=== PATIENT | female | born 1955 | race Two or more races ===

== ENCOUNTER 2021-03-17 10:57 | Outpatient (REF) | payer OTHER, SELFPAY ==
--- NOTE | ~2021-03-17 | XR_ITS ---
EXAMINATION: XR HAND, RIGHT CLINICAL INFORMATION: Pain in right hand and wrist. COMPARISON: None TECHNIQUE: The right hand is imaged in 3 views. The right wrist is imaged in 4 views. There are a total of 7 views. FINDINGS: There is subtle deformity distal radial metaphysis likely related to old healed fracture. There is no visible acute or healing fracture. The ulnar variance is neutral. The pronator quadratus fat pad appears normal. There is no carpal joint narrowing or erosive change or chondrocalcinosis. The right hand shows no acute or healing fracture, dislocation or destructive process. There is mild osteopenia right hand and wrist. There is mild joint narrowing 1st MCP. No erosive change. The PIP joints are unremarkable. There are mild osteoarthritic changes to DIP joints greatest 2nd and 3rd fingers. XR/XR hand RT min 3V IMPRESSION: 1. Suspect old healed fracture distal radius. 2. Mild joint narrowing 1st MCP. Mild osteoarthritic changes DIP joints, greatest index and 3rd finger. 3. No erosive changes.
--- NOTE | ~2021-03-17 | XR_ITS ---
EXAMINATION: XR HAND, RIGHT CLINICAL INFORMATION: Pain in right hand and wrist. COMPARISON: None TECHNIQUE: The right hand is imaged in 3 views. The right wrist is imaged in 4 views. There are a total of 7 views. FINDINGS: There is subtle deformity distal radial metaphysis likely related to old healed fracture. There is no visible acute or healing fracture. The ulnar variance is neutral. The pronator quadratus fat pad appears normal. There is no carpal joint narrowing or erosive change or chondrocalcinosis. The right hand shows no acute or healing fracture, dislocation or destructive process. There is mild osteopenia right hand and wrist. There is mild joint narrowing 1st MCP. No erosive change. The PIP joints are unremarkable. There are mild osteoarthritic changes to DIP joints greatest 2nd and 3rd fingers. XR/XR wrist RT w scaphoid IMPRESSION: 1. Suspect old healed fracture distal radius. 2. Mild joint narrowing 1st MCP. Mild osteoarthritic changes DIP joints, greatest index and 3rd finger. 3. No erosive changes.
== END 2021-03-17 10:58 | disposition home or self-care (01) ==
LOC: HO.HOSX 10:57
PROVIDERS: PCP Internal Medicine; Visit Provider Orthopaedic Surgery
DX: M25.531 Pain in right wrist (principal); M79.641 Pain in right hand; R20.0 Anesthesia of skin; R20.2 Paresthesia of skin
CPT/HCPCS: 73110; 73130; 99202

== ENCOUNTER → 2021-03-31 12:33 | Outpatient (BNVA) | payer OTHER, SELFPAY | PROVIDERS: PCP Internal Medicine; Visit Provider Orthopaedic Surgery | DX: M25.531 Pain in right wrist (principal); M79.641 Pain in right hand; G56.02 Carpal tunnel syndrome, left upper limb | CPT/HCPCS: 99212 ==

== ENCOUNTER 2021-04-07 18:49 | Outpatient (REF) | payer OTHER, SELFPAY ==
--- NOTE | ~2021-04-07 | MR_ITS ---
EXAMINATION: MR WRIST WITHOUT CONTRAST, RIGHT CLINICAL INFORMATION: Wrist pain. Hand swelling. Pain. COMPARISON: X-ray 03/17/2021 TECHNIQUE: MRI of the wrist was performed using routine sequences on a high-field scanner. FINDINGS: BONE/JOINTS: Mild heterogeneous signal in the distal radial metaphysis with a subtle linear focus in the articular surface. Findings suggest sequela of old healed fracture. Ulnar positive variance. There is fairly diffuse edema in the lunate, with subcortical cyst in the proximal ulnar aspect. Cystic change and edema in the proximal pole of the triquetrum. These findings may be related to arthritis versus sequela of ulnar impaction. There is arthritic cyst in the distal pole of the triquetrum, as well. There are arthritic changes otherwise in the hand, including mild triscaphe joint, 1st CMC arthritis. Arthritic cysts/signal changes in the hamate, capitate. Cysts/edema in the proximal pole of the scaphoid, probably related to arthritis. Mild radiocarpal arthritis. No evidence of acute fracture. No significant joint effusion. MUSCLE/TENDONS: There is fluid in some of the flexor tendons on the volar/ulnar aspect at the level of the distal radius, suggesting mild tenosynovitis. The tendons otherwise appear intact. LIGAMENTS: Scapholunate degeneration with degenerative tearing. Degenerative tearing of the central/ulnar aspect of the triangular fibrocartilage, involving a segment approximately 0.9 cm transverse, with thinning, ill-definition and irregularity. There is degeneration and partial tearing of the dorsal and volar radioulnar ligaments, with abnormal signal, thinning and irregularity. There is degenerative tearing of the ulnar attachments of the TFCC. Trace fluid in the distal radioulnar joint. Degenerative fraying/tearing of the lunotriquetral ligament. MEDIAN NERVE: Within normal limits. MR/MR wrist RT wo con IMPRESSION: 1. Suspected old healed distal radial fracture. 2. Ulnar positive variance. Findings in the lunate, triquetrum, described above, may be related to ulnar-carpal arthritis versus ulnar impaction syndrome. Given the extensive signal changes in the lunate, evolving changes of avascular necrosis cannot be excluded. Consider followup imaging for reassessment. 3. Radiocarpal arthritis, with cyst/edema in the proximal scaphoid, probably related to arthritis. 4. Mild tenosynovitis of some of the tendons at the level of the distal radius. 5. Scapholunate degenerative tearing. Lunotriquetral ligament degenerative fraying/tearing. 6. Degenerative tearing of the TFCC. Degenerative tearing of the triangular fibrocartilage, the dorsal and volar radioulnar ligaments, and the ulnar attachments of the TFCC.
== END 2021-04-07 18:50 | disposition home or self-care (01) ==
LOC: HO.MRI 18:49
PROVIDERS: Visit Provider Orthopaedic Surgery
DX: M25.531 Pain in right wrist (principal)
CPT/HCPCS: 73221

== ENCOUNTER → 2021-05-05 14:46 | Outpatient (BNVA) | payer OTHER, SELFPAY | PROVIDERS: PCP Internal Medicine; Visit Provider Orthopaedic Surgery ==

== ENCOUNTER → 2021-05-26 12:08 | Outpatient (BNVA) | payer OTHER, SELFPAY | PROVIDERS: PCP Internal Medicine; Visit Provider Orthopaedic Surgery | DX: M79.641 Pain in right hand (principal); M25.531 Pain in right wrist; R20.0 Anesthesia of skin; R20.2 Paresthesia of skin; G56.02 Carpal tunnel syndrome, left upper limb | CPT/HCPCS: 99212 ==

== ENCOUNTER 2021-12-28 18:35 | Emergency (ER) | payer MEDICARE, SELFPAY ==
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
[2021-12-28 18:44] VITALS: BP 170/90; PULSE 75; O2SAT 100
[2021-12-28 19:30] VITALS: BP 164/62; PULSE 65; RESP 16; TEMP 36.9; O2SAT 98; BMI 30.9
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
== END 2021-12-28 21:04 | disposition home or self-care (01) ==
PROVIDERS: Emergency Provider Emergency Medicine Emergency Medical Services; PCP Internal Medicine
DX: M25.561 Pain in right knee (principal); Z79.899 Other long term (current) drug therapy
CPT/HCPCS: 73560; 99283

== ENCOUNTER 2022-02-23 07:24 | Outpatient (REF) | payer MEDICARE, SELFPAY | END 2022-02-23 07:25 | disposition home or self-care (01) | LOC: HO.MRI 07:24 | PROVIDERS: Visit Provider Internal Medicine | DX: Z13.89 Encounter for screening for other disorder (principal) ==

== ENCOUNTER 2022-03-07 07:15 | Outpatient (REF) | payer MEDICARE, SELFPAY ==
--- NOTE | ~2022-03-07 | MR_ITS ---
EXAMINATION: MR WRIST WITHOUT CONTRAST, RIGHT CLINICAL INFORMATION: Right wrist fracture with delayed healing. Fracture in 2016 with decreased strength. Wrist pain into fingers. Bone graft. COMPARISON: Most recent right wrist MRI dated 04/07/2021 and right wrist radiographs dated 03/17/2021. TECHNIQUE: MRI of the wrist was performed using routine sequences on a high-field scanner. FINDINGS: TRIANGULAR FIBROCARTILAGE: Redemonstration of diffuse degeneration throughout the triangular fibrocartilage complex with full-thickness tearing at the radial aspect, unchanged when compared to the prior MRI. INTRINSIC LIGAMENTS: Widening of the scapholunate interval is redemonstrated with attenuation and irregularity of the scapholunate ligament consistent with chronic degenerative tearing. Abnormal signal throughout the lunotriquetral ligament. Findings are unchanged. TENDONS/MEDIAN NERVE: Trace fluid within the extensor carpi radialis longus and extensor carpi radialis brevis tendon sheaths, consistent with minimal tenosynovitis. Remaining flexor and extensor tendons are grossly intact. Unremarkable median nerve. ARTICULAR CARTILAGE/BONE: Redemonstration of cortical irregularity throughout the distal radius without marrow edema, consistent with a remote, healed fracture. Minimal ulnar positive variance is again noted with prominent degenerative cystic change and marrow edema in the lunate, similar when compared to the prior MRI. Degenerative cystic change and marrow edema at the radial scaphoid articulation, similar when compared to the prior examination. Additional degenerative cystic change at the lunate and distal ulna appears unchanged. Mild articular cartilage loss with small marginal osteophytes at the triscaphe and 1st carpometacarpal joints, similar when compared to the prior MRI. No acute fracture or dislocation. JOINT FLUID/SOFT TISSUES: Small distal radioulnar and radiocarpal joint effusions. MR/MR wrist RT wo con IMPRESSION: 1. 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 Minimal ulnar positive variance with prominent subchondral cystic change and marrow edema again noted at the ulna, not significant changed. Small radiocarpal joint effusion. 2. Minimal ulnar positive variance is again noted with diffuse degenerative tearing throughout the triangular fibrocartilage complex, similar when compared to the prior examination. Small distal radial ulnar joint effusion, unchanged. 3. Mild extensor carpi ulnaris longus and extensor carpi radialis brevis tenosynovitis without an acute tendon tear or tendon retraction. 4. Chronic degenerative tearing of the scapholunate and lunotriquetral ligaments, similar when compared to the prior examination.
== END 2022-03-07 07:16 | disposition home or self-care (01) ==
LOC: HO.MRI 07:15
PROVIDERS: Visit Provider Internal Medicine
DX: S62.91XG Unspecified fracture of right hand, subsequent encounter for fracture with delayed healing (principal)
CPT/HCPCS: 73221

== ENCOUNTER → 2022-05-24 07:22 | Outpatient (REF) | payer MEDICARE, SELFPAY ==
--- NOTE | 2022-05-24 07:26 | CA_ITS ---
Transthoracic Echocardiogram Patient (Last, First, Middle): Joyce Mota Elba Gender: Female Date of : 1955 Age: 66 Procedure Date: 05/24/2022 Procedure Type: Transthoracic Echocardiogram Location: OP Height: 154.94 cm Weight: 70.76 kg BSA: 1.70 m2 Heart Rate: 64 bpm BP: 180 / 78 mmHg Elementary Substitute Teacher: SB Referring MD: Mercedes Goel MD Symptoms: I47.1 SUPRAVENTRICULAR TACHYCARDIA Study Quality: Adequate ECG Rhythm: Sinus Conclusions: - The left ventricular systolic function is normal. The calculated ejection fraction is 57% by biplane method. - No obvious valvular pathology seen on this study. Findings Left Ventricle Normal left ventricular cavity size. There is normal left ventricular wall thickness. The left ventricular systolic function is normal. The calculated ejection fraction is 57% by biplane method. Regional wall motion abnormalities can not be excluded due to suboptimal endocardial definition. Diastolic function is normal for age. LV peak GLS -17.4%. Right Ventricle Normal right ventricular cavity size and systolic function. Atria Both atria are normal in size. Aortic Valve There is a normal trileaflet aortic valve. There is mild calcification of the aortic valve. There is no aortic valve stenosis. There is trace (trivial) aortic valve regurgitation. Mitral Valve The mitral valve appears normal. There is no mitral valve regurgitation. There is no mitral valve stenosis. Pulmonic Valve The pulmonic valve is likely normal. Tricuspid Valve There is trace tricuspid valve regurgitation. The pulmonary artery systolic pressure is normal. Great Vessels The asc aorta is normal in size. Venous The inferior vena cava is normal in size and collapses greater than 50% with inspiration. Pericardium/Pleural There is no evidence of pericardial effusion. Prior Study Comparison No prior study available for comparison. Recommendations, Care & Conclusions No obvious valvular pathology seen on this study. Recommend contrast in the future to improve endocardial definition. Measurements 2D Linear Measurements IVSd: 0.78 0.6-0.9/0.6-1.0 cm LVIDd: 5.39 3.9-5.3/4.2-5.9 cm LVIDd Index: 3.17 2.4-3.2/2.2-3.1 cm/m2 LVIDs: 3.62 2.0-3.6 cm LVPWd: 0.53 0.7-1.1 cm LA Diam: 3.80 2.7-3.8/3.0-4.0 cm LAIDs Index: 2.24 1.5-2.3 cm/m2 LV Mass: 150.50 67-162/88-224 g LV Mass Index: 88.53 43-95/49-115 g/m2 LVOT Diam: 1.90 3.0+(-)1.3 cm 2D Systolic Function EF 4C: 52.60 >55% EF 2C: 61.60 >55% EF BiP: 57.10 >55% Mitral Valve MV Pk E: 0.69 MV PK A: 0.61 MV Decel Time: 271.00 E/A: 1.10 E'Lateral: 9.14 E'Medial: 5.77 E/E' Med: 11.90 E/E' Lat: 7.50 PHT: 79.00 MVA PHT: 2.78 Decel [place]: 2.53 Aortic Valve AoV Pk Marcos: 1.37 AoV Mn Marcos: 0.98 AoV VTI: 0.31 AoV Pk Grad: 8.00 Aov Mn Grad: 5.00 MAURA Cont.VTI: 1.91 LVOT LVOT Pk Marcos: 0.97 LVOT Mn Marcos: 0.71 LVOT VTI: 0.21 LVOT Pk Grad: 4.00 LVOT Mn Grad: 2.00 LVOT Diam: 1.90 LVOT Area: 2.84 Diastolic Function MV Pk E: 0.69 MV Pk A: 0.61 E/A: 1.10 E'Medial: 5.77 E/E' Med: 11.90 E' Laterial: 9.14 E/E' Lat: 7.50 Right Ventricle TAPSE (mm): 18.70 TVS' Marcos: 11.70 Tricuspid Valve TR Pk Marcos: 1.97 TR Pk Grad: 16.00 RA Press: 3.00 RVSP: 19.00 Great Vessels Aorta Sinus of Valsalva: 3.10 2.0-3.5 cm Ao Asc: 3.60 2.1-3.4 cm Pulmonary Veins Pulm Vein S/D 1.30 Pulmonary Valve PV Pk Marcos: 0.84 Peak PV Grad: 3.00 Updated in Other Vendor System with Status of Final Dorian Amin MD electronically signed on 05/24/2022 12:31:26 PM with status of Final
== END ==
LOC: HO.CARD 07:22
PROVIDERS: Visit Provider Internal Medicine
DX: I47.1 Supraventricular tachycardia (principal)
CPT/HCPCS: 93306; 93356

== ENCOUNTER → 2022-06-20 14:00 | Outpatient (BNVA) | payer MEDICARE, SELFPAY | PROVIDERS: PCP Internal Medicine; Referring Provider Internal Medicine; Visit Provider Internal Medicine | DX: I47.1 Supraventricular tachycardia (principal); I49.8 Other specified cardiac arrhythmias; R42 Dizziness and giddiness | CPT/HCPCS: 93005; 99202 ==

== ENCOUNTER → 2022-12-21 14:54 | Outpatient (BNVA) | payer MEDICARE, MEDICAID, SELFPAY | PROVIDERS: PCP Internal Medicine; Referring Provider Internal Medicine; Visit Provider Internal Medicine | DX: I49.8 Other specified cardiac arrhythmias (principal); I49.3 Ventricular premature depolarization | CPT/HCPCS: 99212 ==

== ENCOUNTER 2023-04-07 17:11 | Emergency (ER) | payer MEDICARE, MEDICAID, SELFPAY ==
[2023-04-07 17:51] VITALS: BP 160/90; PULSE 96; RESP 16; TEMP 36.7; O2SAT 96; BMI 30.6
[2023-04-07 19:20] VITALS: BMI 30.9
--- NOTE | 2023-04-07 19:42 | ED.ANIMALBIT ---
HPI - Animal Bite General Chief Complaint: Animal Bite Stated Complaint: Dog bite Time Seen by Provider: 04/07/23 18:46 Source: patient Mode of arrival: ambulatory Limitations: no limitations History of Present Illness HPI narrative: 67-year-old female presents to the ER with complaints of dog bite to the left thigh. Patient reports she was outside when a pit bull bit her left thigh. She does not know any information about the dog rabies status. She did file a report with police who were on scene. She is unaware of her last tetanus shot. MD complaint: animal bite Related Data Home Medications Medication Instructions Recorded Confirmed albuterol sulfate 90 mcg/actuation 2 puff PO Q4H PRN 06/20/22 12/21/22 aerosol inhaler fluticasone propionate 220 1 puff PO BID 06/20/22 12/21/22 mcg/actuation HFA aerosol inhaler (Flovent HFA) sumatriptan succinate 100 mg tablet mg PO 06/20/22 12/21/22 Previous Rx's Medication Instructions Recorded amoxicillin 875 mg-potassium 1 tab PO BID #20 tabs 04/07/23 clavulanate 125 mg tablet Allergies Allergy/AdvReac Type Severity Reaction Status Date / Time acetaminophen [From Percocet] Allergy vomitting Verified 04/07/23 17:51 Antihistamines - Alkylamine Allergy itching Verified 04/07/23 17:51 morphine Allergy bp goes up Verified 04/07/23 17:51 and feels pins and needles oxycodone [From Percocet] Allergy vomitting Verified 04/07/23 17:51 Review of Systems Review of Systems: Yes all other systems are reviewed and are negative Constitutional: Constitutional: Reports no additional constitutional complaints, Denies body ache(s), Denies chills, Denies fever(s), Denies headache(s) and Denies weakness Eyes: Eyes: Reports no additional eye complaints and Denies change in vision ENT: Reports system reviewed and no additional complaints, except as documented, Denies dizziness, Denies headache(s), Denies nasal congestion, Denies nasal discharge and Denies neck pain Cardiovascular: Cardiovascular: Reports no additional cardiovascular complaints, Denies chest pain, Denies leg edema and Denies dyspnea Respiratory: Respiratory: Reports no additional respiratory complaints, Denies cough and Denies dyspnea Gastrointestinal: Gastrointestinal: Reports no additional gastrointestinal complaints, Denies abdominal pain, Denies diarrhea, Denies nausea and Denies vomiting Genitourinary: Genitourinary: Reports no additional female genitourinary complaints and Denies urinary incontinence Musculoskeletal: Musculoskeletal: Reports no additional musculoskeletal complaints, Denies back pain, Denies arthralgias, Denies joint swelling, Denies neck pain, Denies numbness and Denies tingling Integumentary/Breasts: Skin/Breast: Reports system reviewed and no additional complaints, except as docu, Denies rash and Reports wounds Neurologic: Reports system reviewed and no additional complaints, except as documented, Denies dizziness, Denies headache(s), Denies numbness, Denies tingling and Denies weakness PMFSH Past Medical History Attestation statement: The following information was validated with the patient. Source: old records reviewed and nursing notes reviewed Surgical History No pertinent past surgical history Family History Family History Father No problems noted. Mother No problems noted. Social History Social History Alcohol intake: never Patient Tobacco Use Status: Never used Tobacco Smoked in Last 30 Days: No Use of substances other than those prescribed or required for medical reasons: No Advance Directives: No Advance Directives Information Provided: No Current occupational status: disabled Current occupation: rt hand Physical Exam ED Vital Signs: Vital Signs - 24 hr 04/07/23 17:51 Temperature 98.1 F Pulse Rate 96 Respiratory Rate 16 Blood Pressure 160/90 H Pulse Oximetry 96 Oxygen Delivery Method Room Air BMI result Body Mass Index 30.9 Const General: cooperative, healthy appearing, comfortable and no acute distress Orientation/consciousness: patient oriented x3 Limitations: no limitations HENMT Head: Yes normal to inspection Ears: hearing grossly normal bilaterally Eyes General: appearance normal, both eyes and all related structures Pupils: Equal, round and reactive pupils present Neck Neck: Yes normal visual inspection Chest Chest palpation & inspection: normal inspection of the chest Resp Effort & Inspection: normal respiratory effort Skin Other: Over the mid thigh both anteriorly and posteriorly there are several small abrasions noted with ecchymosis. Neuro General: patient oriented x3 and moves all extremities Cranial nerves: Yes Equal, round and reactive pupils present Medications Administered Discontinued Medications Generic Name Dose Route Start Last Admin Trade Name Freq PRN Reason Stop Dose Admin Diphtheria/Tetanus/Acell Pertussis 0.5 ml 04/07/23 19:07 04/07/23 20:30 Diphth,Pertus(Acell),Tet Adult 0.5 Ml Syringe IM 04/07/23 19:08 0.5 ml .ONCE ONE Administration Rabies Immune Globulin 1,469.64 unit 04/07/23 19:07 04/07/23 20:35 Rabies Immune Globulin/Pf 900 Unit/3 Ml Vial 20 unit/kg (1469.64 unit) 04/07/23 19:08 1,469.64 unit IM Administration ONCE ONE Rabies Vaccine Human Diploid Cell 1 ml 04/07/23 19:07 04/07/23 20:33 Rabies Vaccine, Human Diploid (Imovax) 1 Ml Vial IM 04/07/23 19:08 1 ml .ONCE ONE Administration Medical Decision Making Medical Decision Making MDM Narrative: 67-year-old female here with dog bite left thigh. Rabies status is unknown. Patient's own tetanus status is unknown. Very superficial abrasions noted to the left thigh. Patient to receive rabies immunoglobulin and rabies vaccine here in the ER. Tetanus will be updated. Patient be started on prophylactic antibiotics. The site was cleansed by nursing and dressings were applied. Reviewed worrisome signs and symptoms of when to return to the emergency room. Comfortable plan for discharge home. Differential Diagnosis Differential Diagnoses: The differential diagnosis associated with the presentation includes Dog bite Discharge Plan Discharge Clinical Impression: Bite by animal, Dog bite Patient Disposition: Home, Self-Care Instructions: Animal Bite (ED), Rabies (ED) Additional Instructions: Follow the rabies scheduled was provided to you Keep the wound clean covered and dry Return for increasing redness, fever, drainage Prescriptions: New amoxicillin-pot clavulanate 875-125 mg tablet 1 tab PO BID Qty: 20 0RF No Action fluticasone propionate [Flovent HFA] 220 mcg/actuation HFA aerosol inhaler 1 puff PO BID albuterol sulfate 90 mcg/actuation HFA aerosol inhaler 2 puff PO Q4H PRN sumatriptan succinate 100 mg tablet PO Referrals: Jah Oliva MD [Primary Care Provider] - 10 days (as needed)
--- NOTE | 2023-04-07 20:12 | PC.NURSE ---
Addendum entered by Bere Nunez 04/07/23 20:48: [facility] rabies injection as im not to the wound area. verbal order to this rn Bere and relayed onto [facility]. Original Note: rabies im injection no to the wound area per provider Jenna anderson
[2023-04-07] MEDS: Diphth,Pertus(ACell),Tet Adult 0.5 ML SYRINGE IM (20:30)
[2023-04-07] MEDS: Rabies Vaccine, Human Diploid (Imovax) 1 ML VIAL IM (20:33)
[2023-04-07] MEDS: Rabies Immune Globulin/PF 900 UNIT/3 ML VIAL 1469.64 UNIT IM (20:35)
--- NOTE | 2023-04-07 20:59 | PC.NURSE ---
patient medicated per orders, pharmacy and medical day faxed, [employer] [facility] [employer] faxed as well. pt understands to call [facility] for her next appointment and to bring the vaccination card wtih her. pt discharging to home.
== END 2023-04-07 21:04 | disposition home or self-care (01) ==
PROVIDERS: Emergency Provider Student in an Organized Health Care Education/Training Program; PCP Internal Medicine
DX: S71.152A Open bite, left thigh, initial encounter (principal); S70.312A Abrasion, left thigh, initial encounter; W54.0XXA Bitten by dog, initial encounter; Y93.9 Activity, unspecified; Y92.9 Unspecified place or not applicable; Y99.9 Unspecified external cause status; Z20.3 Contact with and (suspected) exposure to rabies; Z29.14 Encounter for prophylactic rabies immune globulin; Z23 Encounter for immunization
CPT/HCPCS: 90375; 90471; 90472; 90675; 90715; 96372; 99284

== ENCOUNTER 2023-04-10 10:05 | Outpatient (REF) | payer MEDICARE, MEDICAID, SELFPAY | END 2023-04-10 10:06 | disposition home or self-care (01) | LOC: HO.MDS 10:05 | PROVIDERS: PCP Internal Medicine; Visit Provider Nurse Practitioner Family | DX: S71.152A Open bite, left thigh, initial encounter (principal); W54.0XXA Bitten by dog, initial encounter; Z20.3 Contact with and (suspected) exposure to rabies | CPT/HCPCS: 90471; 90675 ==

== ENCOUNTER 2023-04-14 08:53 | Outpatient (REF) | payer MEDICARE, MEDICAID, SELFPAY | END 2023-04-14 08:54 | disposition home or self-care (01) | LOC: HO.MDS 08:53 | PROVIDERS: Visit Provider Nurse Practitioner Family | DX: S71.152A Open bite, left thigh, initial encounter (principal); W54.0XXA Bitten by dog, initial encounter; Z20.3 Contact with and (suspected) exposure to rabies | CPT/HCPCS: 90471; 90675 ==

== ENCOUNTER 2023-04-21 09:13 | Outpatient (REF) | payer MEDICARE, MEDICAID, SELFPAY | END 2023-04-21 09:14 | disposition home or self-care (01) | LOC: HO.MDS 09:13 | PROVIDERS: Visit Provider Nurse Practitioner Family | DX: S71.152A Open bite, left thigh, initial encounter (principal); W54.0XXA Bitten by dog, initial encounter; Z20.3 Contact with and (suspected) exposure to rabies | CPT/HCPCS: 90471; 90675 ==

== ENCOUNTER 2023-09-19 07:57 | Outpatient (REF) | payer MEDICARE, SELFPAY | END 2023-09-19 07:58 | disposition home or self-care (01) | LOC: HO.RESP 07:57 | PROVIDERS: PCP Internal Medicine; Visit Provider Internal Medicine | DX: R05.9 Cough, unspecified (principal) | CPT/HCPCS: 94010; 94727; 94729 ==

== ENCOUNTER 2023-09-25 13:36 | Outpatient (AMB) | payer MEDICARE, SELFPAY ==
[2023-09-25 13:41] VITALS: BP 124/68; PULSE 80; O2SAT 97; BMI 30.9
--- NOTE | 2023-09-25 13:41 | MHC.OFFVIS ---
Intake Vital Signs 09/25/23 13:41 Height 5 ft 1 in Weight 163 lb 5.8 oz BMI 30.9 BP 124/68 Blood Pressure Location Lt brachial Position Sitting Pulse 80 Pulse Source Pulse Oximeter Pulse Oximetry (%) 97 Oxygen Delivery Method Room Air Intake Visit Reasons: cough/hx of asthma Chairman President And Chief Executive Officer Required: No Allergies acetaminophen [From Percocet] Allergy (Verified 09/25/23 13:43) vomitting Antihistamines - Alkylamine Allergy (Verified 09/25/23 13:43) itching morphine Allergy (Verified 09/25/23 13:43) bp goes up and feels pins and needles oxycodone [From Percocet] Allergy (Verified 09/25/23 13:43) vomitting HPI HPI Comments History of Present Illness Details The patient is here for pulmonary evaluation. The patient is a 68 year woman with known history of using her rescue inhaler multiple times a day. The patient is stop her maintenance inhalers because they just were not working for her. The patient does not required any prednisone however. She also states she has significant allergies. She states that initially her asthma started after living in a moldy apartment in the afterwards she when she moved out she still had her symptoms. She was being evaluated previously by Pulmonary at [place]. But then her provide her left and she is been lost to follow-up. She did have her pulmonary function studies done recently at [facility] we did review them. The patient appears to have a partially reversible obstruction concerning with severe asthma uncontrolled and or asthma COPD overlap syndrome. Explained to him the importance of using respiratory therapy to try to maximize her bronchodilation effect that she has basilar PFTs. The patient also basilar significant symptoms may be a good candidate for biologic therapy. Will go ahead and we test her allergies and also blood work at this time. The patient also has significant chronic congestion. We did try to get a sputum sample we were able to do so. Therefore, we did provide her a sputum cup and she will try to provide 1 at home. Likely that the chronic bronchitis is mainly a asthmatic bronchitis picture due to her significant allergies. As far as exposures she does have a dog and also has an exotic birds in the house. She does clean the cage outside and tries to minimize exposure to the father's. Will go ahead and tested hypersensitivity panel to see if there is a component of hypersensitivity pneumonitis. at this time will go ahead and maximize her respiratory therapy by placing her on Trelegy and she can continue her rescue inhaler as needed. Will follow-up after the blood work and also have her get an x-ray and sputum culture. [facility] Medical History (Updated 09/25/23 @ 20:48 by Josh Silvestre MD) Chronic bronchitis Asthma Allergies Surgical History No pertinent past surgical history Family History Father No problems noted. Mother No problems noted. Alcohol intake: never Patient Tobacco Use Status: Never used Tobacco Current occupational status: disabled Current occupation: rt hand Review of Systems Const Denies fever(s) Eyes Denies itchy eyes ENT Reports nasal congestion and Reports nasal discharge Card Denies chest pain Resp Reports chest congestion, Reports cough and Reports wheezing GI Reports no additional complaints Musc Reports no additional complaints Skin/Breast Denies rash Vini/Lymph Denies lymphadenopathy Aller/Immun Denies itchy eyes and Reports wheezing Physical Exam Vital Signs: Last Vital Signs Pulse 80 09/25/23 13:41 BP 124/68 09/25/23 13:41 Pulse Ox 97 09/25/23 13:41 Oxygen Delivery Method Room Air 09/25/23 13:41 BMI result Body Mass Index 30.9 Const General: comfortable HEENT Head: Yes normocephalic Neck Neck: Yes supple Chest Chest palpation & inspection: normal inspection of the chest Resp Effort & Inspection: normal respiratory effort and prolonged expiratory phase Auscultation: rhonchi and wheezes Cardio Rate: regular rate Rhythm: regular rhythm Heart sounds: S1 normal heart sound present and S2 normal heart sound present GI Palpation (GI): Soft to palpation Extrem General: Yes no clubbing, cyanosis or edema Office Procedures Nebulizer Treatment Nebulizer Treatment 44950-[id number]/[id number] RX initial, or Nebulizer Subsequent Treatment Office Meds levalbuterol HCl 1.25 mg/3 mL solution for nebulization Performing Provider: Josh Silvestre MD Performing Location: [facility] Administered by: Ritika Reid LPN on 09/25/23 14:07 Dose Route Admin Location Dispensed Lot Number Expiration Date [place] Keymodule Assembly Supervisor 1.25 mg inhalation 3 mL [id number] 03/29/25 7151-9925-25 [employer] sodium chloride 3 % for nebulization Performing Provider: Josh Silvestre MD Performing Location: [facility] Administered by: Ritika Reid LPN on 09/25/23 14:07 Dose Route Admin Location Dispensed Lot Number Expiration Date ND Keymodule Assembly Supervisor 3 mL inhalation 3 mL [id number] 03/29/25 [id number] MYLAN Assessment & Plan Assessment & Plan (1) Asthma: Code(s): J45.909 - Unspecified asthma, uncomplicated Qualifiers: Asthma severity: severe Asthma persistence: persistent Asthma complication type: uncomplicated Qualified Code(s): J45.50 - Severe persistent asthma, uncomplicated (2) Allergies: Code(s): T78.40XA - Allergy, unspecified, initial encounter Qualifiers: Encounter type: initial encounter Qualified Code(s): T78.40XA - Allergy, unspecified, initial encounter (3) Chronic bronchitis: Code(s): J42 - Unspecified chronic bronchitis Qualifiers: Chronic bronchitis type: mucopurulent Qualified Code(s): J41.1 - Mucopurulent chronic bronchitis Plan Bloodwork start Trelegy 200 Will likely be a good candidate for biologics GAMAL as needed Sputum culure and cell count differential CXR F/U 6-8 weeks Orders: Orders Complete Blood Count Auto Diff Today J45.909 - Unspecified asthma, uncomplicated, T78.40XA - Allergy, unspecified, initial encounter Basic Metabolic Panel Today J45.909 - Unspecified asthma, uncomplicated, T78.40XA - Allergy, unspecified, initial encounter Hypersensitive Pneumonitis Prf Today J45.909 - Unspecified asthma, uncomplicated, R91.8 - Other nonspecific abnormal finding of lung field, T78.40XA - Allergy, unspecified, initial encounter Rast Allergen Today J45.909 - Unspecified asthma, uncomplicated, T78.40XA - Allergy, unspecified, initial encounter Sputum Cult + Gram stain Today J45.909 - Unspecified asthma, uncomplicated Cell Count w Diff Pleural Fld Today J45.909 - Unspecified asthma, uncomplicated AMB Nebulizer Treatment Today J45.909 - Unspecified asthma, uncomplicated XR chest 2V Today J41.1 - Mucopurulent chronic bronchitis Immunoglobulin E Today J45.909 - Unspecified asthma, uncomplicated, T78.40XA - Allergy, unspecified, initial encounter Coding Level of Care Code New Pt Level 4 (51083) Diagnoses Severe persistent asthma without complication J45.50 Asthma severity: severe Asthma persistence: persistent Asthma complication type: uncomplicated Allergy, initial encounter T78.40XA Encounter type: initial encounter Mucopurulent chronic bronchitis J41.1 Chronic bronchitis type: mucopurulent CPT Codes Nebulizer Treatment - Nebulizer Treatment, initial or subsequent: [id number]/MDI RX initial, or Nebulizer Subsequent Treatment ([id number]) Time Spent (min) 40
== END 2023-09-25 14:21 | disposition home or self-care (01) ==
PROVIDERS: PCP Internal Medicine; Referring Provider Internal Medicine; Visit Provider Hospitalist
DX: J45.50 Severe persistent asthma, uncomplicated (principal); T78.40XA Allergy, unspecified, initial encounter; J41.1 Mucopurulent chronic bronchitis
CPT/HCPCS: 99204

== ENCOUNTER 2023-09-25 13:36 | Outpatient (REF) | payer MEDICARE, SELFPAY ==
[2023-09-25 14:35] LABS: MANUAL DIFF FLAG NO
[2023-09-25 14:40] LABS: Basophils Absolute Auto 0.1 X10*3/uL (0.0-0.2); Basophils Percent Auto 0.8 % (0-2); Eosinophils Absolute Auto 0.3 X10*3/uL (0.0-0.4); Eosinophils Percent Auto 3.7 % (0-4); Hematocrit 45.4 % (37.0-47.0); Hemoglobin 14.4 g/dl (12.0-16.0); Imm Gran Abs Auto 0.03 X10*3/uL (0.00-0.03); Imm Gran Pct Auto 0.4 % (0.0-0.4); Lymphocytes Absolute Auto 2.7 X10*3/uL (1.2-4.9); Lymphocytes Percent Auto 34.8 % (20-40); Mean Corpuscular HGB Conc 31.7 g/dl (31.0-35.0); Mean Corpuscular Hemoglobin 29.2 pg (27.0-33.0); Mean Corpuscular Volume 92.1 fL (80.0-98.0); Mean Platelet Volume 10.3 fL (9.4-12.3); Monocytes Absolute Auto 0.4 X10*3/uL (0.1-1.2); Monocytes Percent Auto 4.7 % (2-11); Neutrophils Absolute Auto 4.4 x10*3/uL (2.0-8.3); Neutrophils Percent Auto 55.6 % (45-73); Platelet Count 261 X10*3/uL (160-400); Red Blood Count 4.93 X10*6/uL (4.20-5.50); White Blood Count 7.8 X10*3/uL (4.8-10.8)
[2023-09-25 15:20] LABS: Anion Gap 13 (12-20); Blood Urea Nitrogen 12 mg/dL (9-16); Calcium 9.8 mg/dL (8.4-10.2); Carbon Dioxide 29 mmol/L (22-29); Chloride 105 mmol/L (96-108); Estimated Glomerular Filt Rate > 60; Glucose Random 142 mg/dL (60-115); Potassium 3.9 mmol/L (3.3-5.1); Sodium 143 mmol/L (135-145)
[2023-10-01 13:04] LABS: Asperg fumigatus Precip Abs NEGATIVE (NEGATIVE); Micropoly faeni Abs NEGATIVE (NEGATIVE); Pigeon serum Abs NEGATIVE (NEGATIVE); Saccharo pora viridis Abs NEGATIVE (NEGATIVE); Thermo candidus Abs NEGATIVE (NEGATIVE); Thermoa vulgaris #1 NEGATIVE (NEGATIVE)
== END 2023-09-25 13:37 | disposition home or self-care (01) ==
LOC: HO.LAB 13:36
PROVIDERS: PCP Internal Medicine; Referring Provider Internal Medicine; Visit Provider Hospitalist
DX: R91.8 Other nonspecific abnormal finding of lung field (principal); J41.1 Mucopurulent chronic bronchitis; J45.50 Severe persistent asthma, uncomplicated; T78.40XA Allergy, unspecified, initial encounter; Z79.899 Other long term (current) drug therapy
CPT/HCPCS: 36415; 80048; 82785; 85025; 86003; 86331; 86606; 86609; 94640; 99202

== ENCOUNTER 2023-11-10 13:53 | Outpatient (AMB) | payer MEDICARE, SELFPAY ==
--- NOTE | 2023-11-10 14:01 | A.OFFVIS_ITS ---
Intake Vital Signs 11/10/23 14:02 Height 5 ft 1 in Weight 163 lb 5.8 oz BMI 30.9 Pulse 78 Pulse Source Pulse Oximeter Pulse Oximetry (%) 95 Oxygen Delivery Method Room Air Intake Visit Reasons: cough/hx of asthma Bit Gatherer Required: No Allergies acetaminophen [From Percocet] Allergy (Verified 11/10/23 14:03) vomitting Antihistamines - Alkylamine Allergy (Verified 11/10/23 14:03) itching morphine Allergy (Verified 11/10/23 14:03) bp goes up and feels pins and needles oxycodone [From Percocet] Allergy (Verified 11/10/23 14:03) vomitting HPI HPI Comments History of Present Illness Details The patient is a 68 year woman with known history of using her rescue inhaler multiple times a day. The patient is stop her maintenance inhalers because they just were not working for her. The patient does not required any prednisone however. She also states she has significant allergies. She states that initially her asthma started after living in a moldy apartment in the afterwards she when she moved out she still had her symptoms. She was being evaluated previously by Pulmonary at [place]. But then her provide her left and she is been lost to follow-up. She did have her pulmonary function studies done recently at [facility] we did review them. The patient appears to have a partially reversible obstruction concerning with severe asthma uncontrolled and or asthma COPD overlap syndrome. Explained to him the importance of using respiratory therapy to try to maximize her bronchodilation effect that she has basilar PFTs. The patient also basilar significant symptoms may be a good candidate for biologic therapy. Will go ahead and we test her allergies and also blood work at this time. The patient also has significant chronic congestion. We did try to get a sputum sample we were able to do so. Therefore, we did provide her a sputum cup and she will try to provide 1 at home. Likely that the chronic bronchitis is mainly a asthmatic bronchitis picture due to her significant allergies. As far as exposures she does have a dog and also has an exotic birds in the house. She does clean the cage outside and tries to minimize exposure to the father's. Will go ahead and tested hypersensitivity panel to see if there is a component of hypersensitivity pneumonitis. at this time will go ahead and maximize her respiratory therapy by placing her on Trelegy and she can continue her rescue inhaler as needed. Will follow-up after the blood work and also have her get an x-ray and sputum culture. 11/10/2023 the patient is here for pulmonary follow-up visit. She has doing a little better. The Trelegy has been partially helpful. Although she still continues have chest tightness cough chest congestion and wheezing. [id number] severity. She does use her rescue inhaler typically in a daily basis. We did review her blood work. Her eosinophils are within normal limits and her IgE just slightly elevated. Allergy testing in a very significant. Therefore does not appear to have a significant allergic component. Therefore, based on the patient's symptoms of chronic bronchitis will go ahead and start her on azithromycin 3 times a week. She can not get an EKG when she starts the medicine to make sure that it QT continues to be stable. If the patient continues to be symptomatic after that therapy and if she requires additional prednisone then test prior, biologic therapy, will be the next often. The patient also may be a good candidate for Daliresp. Will reassess when she returns in 3-4 months. [facility] Medical History (Updated 09/25/23 @ 20:48 by Josh Silvestre MD) Chronic bronchitis Asthma Allergies Surgical History No pertinent past surgical history Family History Father No problems noted. Mother No problems noted. Social History Alcohol intake: never Patient Tobacco Use Status: Never used Tobacco Current occupational status: disabled Current occupation: rt hand Review of Systems Const Denies fever(s) Eyes Denies itchy eyes ENT Reports nasal congestion and Reports nasal discharge Card Denies chest pain Resp Reports chest congestion, Reports cough and Reports wheezing GI Reports no additional complaints Musc Reports no additional complaints Skin/Breast Denies rash Vini/Lymph Denies lymphadenopathy Aller/Immun Denies itchy eyes and Reports wheezing Physical Exam Vital Signs: Last Vital Signs Pulse 78 11/10/23 14:02 Pulse Ox 95 11/10/23 14:02 Oxygen Delivery Method Room Air 11/10/23 14:02 BMI result Body Mass Index 30.9 Const General: comfortable HEENT Head: Yes normocephalic Neck Neck: Yes supple Chest Chest palpation & inspection: normal inspection of the chest Resp Effort & Inspection: normal respiratory effort and prolonged expiratory phase Auscultation: rhonchi and wheezes Cardio Rate: regular rate Rhythm: regular rhythm Heart sounds: S1 normal heart sound present and S2 normal heart sound present GI Palpation (GI): Soft to palpation Extrem General: Yes no clubbing, cyanosis or edema Assessment & Plan Assessment & Plan (1) Asthma: Code(s): J45.909 - Unspecified asthma, uncomplicated Qualifiers: Asthma complication type: uncomplicated Asthma persistence: persistent Asthma severity: severe Qualified Code(s): J45.50 - Severe persistent asthma, uncomplicated (2) Allergies: Code(s): T78.40XA - Allergy, unspecified, initial encounter Qualifiers: Encounter type: initial encounter Qualified Code(s): T78.40XA - Allergy, unspecified, initial encounter (3) Chronic bronchitis: Code(s): J42 - Unspecified chronic bronchitis Qualifiers: Chronic bronchitis type: mucopurulent Qualified Code(s): J41.1 - Mucopurulent chronic bronchitis Plan continue Trelegy 200 start Azithromycin MWF EKG start Fluticasone nasal sprsy nasal risning Consider Tezspire if asthma is not controlled GAMAL as needed F/U 3-4 months Orders: Orders ECG 12 lead EKG 11/10/23 J44.9 - Chronic obstructive pulmonary disease, unspecified Medications: New azithromycin Take 1 tablet on Monday/Monday/Monday 250 mg PO 3XW 28 days 12 tabs 2RF K21.9 - Gastro-esophageal reflux disease without esophagitis fluticasone propionate 50 mcg/actuation 2 sprays intranasal DAILY 30 days 15.8 mL 11RF J31.0 - Chronic rhinitis Coding Level of Care Code Est Pt Level 4 (41613) Diagnoses Severe persistent asthma without complication J45.50 Asthma complication type: uncomplicated Asthma persistence: persistent Asthma severity: severe Allergy, initial encounter T78.40XA Encounter type: initial encounter Mucopurulent chronic bronchitis J41.1 Chronic bronchitis type: mucopurulent Time Spent (min) 17
[2023-11-10 14:02] VITALS: PULSE 78; O2SAT 95; BMI 30.9
== END 2023-11-10 14:23 | disposition home or self-care (01) ==
PROVIDERS: PCP Internal Medicine; Visit Provider Hospitalist
DX: J45.50 Severe persistent asthma, uncomplicated (principal); T78.40XA Allergy, unspecified, initial encounter; J41.1 Mucopurulent chronic bronchitis
CPT/HCPCS: 99214

== ENCOUNTER → 2023-11-10 13:53 | Outpatient (BNVA) | payer MEDICARE, SELFPAY | PROVIDERS: PCP Internal Medicine; Visit Provider Hospitalist | DX: J45.50 Severe persistent asthma, uncomplicated (principal); T78.40XA Allergy, unspecified, initial encounter; J41.1 Mucopurulent chronic bronchitis; Z79.899 Other long term (current) drug therapy | CPT/HCPCS: 99212 ==

== ENCOUNTER 2024-12-03 13:30 | Outpatient (AMB) | payer MEDICARE, MEDICAID, SELFPAY ==
--- NOTE | 2024-12-03 13:31 | A.OFFVIS_ITS ---
Vital Signs 12/03/24 13:32 Height 5 ft 1 in Weight 155 lb 6.814 oz BMI 29.4 BP 142/80 H Blood Pressure Location Rt brachial Position Sitting Pulse 78 Pulse Source Pulse Oximeter Pulse Oximetry (%) 98 Oxygen Delivery Method Room Air Intake Visit Reasons: Asthma Allergies acetaminophen [From Percocet] Allergy (Verified 12/03/24 13:38) vomitting Antihistamines - Alkylamine Allergy (Verified 12/03/24 13:38) itching morphine Allergy (Verified 12/03/24 13:38) bp goes up and feels pins and needles oxycodone [From Percocet] Allergy (Verified 12/03/24 13:38) vomitting HPI Comments Details: The patient is a 69 year woman with known history of using her rescue inhaler multiple times a day. The patient is stop her maintenance inhalers because they just were not working for her. The patient does not required any prednisone however. She also states she has significant allergies. She states that initially her asthma started after living in a moldy apartment in the afterwards she when she moved out she still had her symptoms. She was being evaluated previously by Pulmonary at [facility]. But then her provide her left and she is been lost to follow-up. She did have her pulmonary function studies done recently at [facility] we did review them. The patient appears to have a partially reversible obstruction concerning with severe asthma uncontrolled and or asthma COPD overlap syndrome. Explained to him the importance of using respiratory therapy to try to maximize her bronchodilation effect that she has basilar PFTs. The patient also basilar significant symptoms may be a good candidate for biologic therapy. Will go ahead and we test her allergies and also blood work at this time. The patient also has significant chronic congestion. We did try to get a sputum sample we were able to do so. Therefore, we did provide her a sputum cup and she will try to provide 1 at home. Likely that the chronic bronchitis is mainly a asthmatic bronchitis picture due to her significant allergies. As far as exposures she does have a dog and also has an exotic birds in the house. She does clean the cage outside and tries to minimize exposure to the father's. Will go ahead and tested hypersensitivity panel to see if there is a component of hypersensitivity pneumonitis. at this time will go ahead and maximize her respiratory therapy by placing her on Trelegy and she can continue her rescue inhaler as needed. Will follow-up after the blood work and also have her get an x-ray and sputum culture. 11/10/2023 the patient is here for pulmonary follow-up visit. She has doing a little better. The Trelegy has been partially helpful. Although she still continues have chest tightness cough chest congestion and wheezing. Chzb-at-hthcqygo severity. She does use her rescue inhaler typically in a daily basis. We did review her blood work. Her eosinophils are within normal limits and her IgE just slightly elevated. Allergy testing in a very significant. Therefore does not appear to have a significant allergic component. Therefore, based on the patient's symptoms of chronic bronchitis will go ahead and start her on azithromycin 3 times a week. She can not get an EKG when she starts the medicine to make sure that it QT continues to be stable. If the patient continues to be symptomatic after that therapy and if she requires additional prednisone then test prior, biologic therapy, will be the next often. The patient also may be a good candidate for Daliresp. Will reasse ss when she returns in 3-4 months. 12/03/2024 the patient is here for a pulmonary follow-up visit the patient overall is doing okay. Although recently she was exposed to mold in her condominium in his resulting worsening respiratory symptoms wheezing and tightness. She has been on the Trelegy and also on Singulair. Unfortunately she can not tolerate Zyrtec his it can cause palpitations. Therefore I will send her Astelin nasal spray to help her with the significant nasal congestion and asthma symptoms. The patient would also be a candidate for biologics for her significant asthma but she is not interested at this time. Therefore will maximize her chronic rhinitis therapy she will continue with her inhalers and she also has a nebulizer available for worsening symptoms. She is going to minimize the exposure to the mold she is hoping to move out of her condominium. COUNT INCLUDES THE [facility] Medical History (Updated 09/25/23 @ 20:48 by Josh Silvestre MD) Chronic bronchitis Asthma Allergies Surgical History No pertinent past surgical history Family History Father No problems noted. Mother No problems noted. Social History Alcohol intake: never Patient Tobacco Use Status: Never used Tobacco Current occupational status: disabled Current occupation: rt hand Review of Systems Const Denies fever(s) Eyes Denies itchy eyes ENT Reports nasal congestion and Reports nasal discharge Card Denies chest pain Resp Reports chest congestion, Reports cough and Reports wheezing GI Reports no additional complaints Musc Reports no additional complaints Skin/Breast Denies rash Vini/Lymph Denies lymphadenopathy Aller/Immun Denies itchy eyes and Reports wheezing Physical Exam Vital Signs: Last Vital Signs Pulse 78 12/03/24 13:32 BP 142/80 H 12/03/24 13:32 Pulse Ox 98 12/03/24 13:32 Oxygen Delivery Method Room Air 12/03/24 13:32 BMI result Body Mass Index 29.4 Const General: comfortable HEENT Head: Yes normocephalic Neck Neck: Yes supple Chest Chest palpation & inspection: normal inspection of the chest Resp Effort & Inspection: normal respiratory effort and prolonged expiratory phase Auscultation: no rhonchi, no wheezes and diminished lung sounds Cardio Rate: regular rate Rhythm: regular rhythm Heart sounds: S1 normal heart sound present and S2 normal heart sound present GI Palpation (GI): Soft to palpation Extrem General: Yes no clubbing, cyanosis or edema Assessment & Plan Assessment & Plan (1) Asthma: Code(s): J45.909 - Unspecified asthma, uncomplicated Category: Medical Qualifiers: Asthma complication type: uncomplicated Asthma persistence: persistent Asthma severity: severe Qualified Code(s): J45.50 - Severe persistent asthma, uncomplicated (2) Allergies: Code(s): T78.40XA - Allergy, unspecified, initial encounter Category: Medical Qualifiers: Encounter type: initial encounter Qualified Code(s): T78.40XA - Allergy, unspecified, initial encounter (3) Chronic bronchitis: Code(s): J42 - Unspecified chronic bronchitis Category: Medical Qualifiers: Chronic bronchitis type: mucopurulent Qualified Code(s): J41.1 - Mucopurulent chronic bronchitis Plan continue Trelegy 200 start Astelin nasal spray continue Fluticasone nasal sprsy nasal risning (lanny med sinus rinse) Consider Tezspire if asthma is not controlled-not interested GAMAL as needed F/U 6-8 months Medications: New azelastine administer into each nostril 2 sprays intranasal BID 30 mL 6RF 30 days Coding Level of Care Code Est Pt Level 4 (33535) Diagnoses Severe persistent asthma without complication J45.50 Asthma complication type: uncomplicated Asthma persistence: persistent Asthma severity: severe Allergy, initial encounter T78.40XA Encounter type: initial encounter Mucopurulent chronic bronchitis J41.1 Chronic bronchitis type: mucopurulent Time Spent (min) 16
[2024-12-03 13:32] VITALS: BP 142/80; PULSE 78; O2SAT 98; BMI 29.4
--- OUTSIDE RECORDS SUMMARY | 2024-12-03 13:42 | XMS_ITS | Continuity of Care Document ---
Demographics Address [facility] [address] [place] [address] Work Phone Mobile Phone Email Address Preferred Language en Marital Status Unknown Spiritism Affiliation Unknown Race Unknown Ethnic Group Unknown Author Organization [facility] Address [address] [place] [address] [address] [place] [address] Phone Care Team Providers Care Sterile Processing Manager Name Role Phone Shay Flowers MD, FACS, RVT Unavailable Unavailable Advance Directives Directive Yes / No Effective Date File Name No Information Encounters Encounter Description Practice Location Reason(s) For Visit Diagnoses Date Provider Providers Copied on Encounter [facility], [address], [place], [id number], tel:[phone] [facility] No Information Salvador Thompson. [address] [place] [address], [address], [place]. tel:[phone] Referring Provider: Jah Isaacs, [address] [place], [address]. tel:[phone] Family History Family Member Type Diagnosis Age At Onset No Information Payers Payer name Insurance type Covered libertarian ID Authoriza tion(s) [facility] [place] CI [id number] Social History Type Description Quantity Date Captured [...]
== END 2024-12-03 14:01 | disposition home or self-care (01) ==
PROVIDERS: PCP Internal Medicine; Visit Provider Hospitalist
DX: J45.50 Severe persistent asthma, uncomplicated (principal); T78.40XA Allergy, unspecified, initial encounter; J41.1 Mucopurulent chronic bronchitis
CPT/HCPCS: 99214

== ENCOUNTER → 2024-12-03 13:30 | Outpatient (BNVA) | payer MEDICARE, MEDICAID, SELFPAY | PROVIDERS: PCP Internal Medicine; Visit Provider Hospitalist | DX: J45.50 Severe persistent asthma, uncomplicated (principal); J41.1 Mucopurulent chronic bronchitis; T78.40XA Allergy, unspecified, initial encounter; X58.XXXA Exposure to other specified factors, initial encounter; Y93.9 Activity, unspecified; Y92.9 Unspecified place or not applicable; Y99.9 Unspecified external cause status | CPT/HCPCS: 99212 ==

== ENCOUNTER 2025-06-25 12:59 | Outpatient (AMB) | payer MEDICARE, MEDICAID, SELFPAY ==
--- OUTSIDE RECORDS SUMMARY | 2023-01-19 07:46 | XMS_ITS | Continuity of Care Document ---
Demographics Address [facility] [address] [place] [address] Work Phone Mobile Phone Email Address Preferred Language en Marital Status Unknown Pentecostalism Affiliation Unknown Race Unknown Ethnic Group Unknown Author Organization [facility] Address [address] [place] [address] [address] [place] [phone] Phone Care Team Providers Care Production Helper Name Role Phone Shay Flowers MD, FACS, RVT Unavailable Unavailable Advance Directives Directive Yes / No Effective Date File Name No Information Encounters Encounter Description Practice Location Reason(s) For Visit Diagnoses Date Provider Providers Copied on Encounter [facility], [address], [place], [id number], tel:[phone] [facility] No Information Salvador Thompson. [address] [place] [address], [address], [place]. tel:[phone] Referring Provider: Jah Isaacs, [address] [place], [address]. tel:[phone] Family History Family Member Type Diagnosis Age At Onset No Information Payers Payer name Insurance type Covered green party ID Authoriza tion(s) [facility] [place] CI [id number] Social History Type Description Quantity Date Captured [...]
[2025-06-25 13:08] VITALS: BP 120/62; PULSE 72; BMI 28.7
--- NOTE | 2025-06-25 13:08 | MHC.OFFVIS ---
Vital Signs 06/25/25 13:08 Height 5 ft 1 in Weight 152 lb 1.903 oz BMI 28.7 BP 120/62 Blood Pressure Location Lt brachial Position Sitting Pulse 72 Pulse Source Monitor Intake Visit Reasons: Follow up Allergies acetaminophen (From Percocet) Allergy (Verified 12/03/24 13:38) vomitting Antihistamines - Alkylamine Allergy (Verified 12/03/24 13:38) itching morphine Allergy (Verified 12/03/24 13:38) bp goes up and feels pins and needles oxycodone (From Percocet) Allergy (Verified 12/03/24 13:38) vomitting Medication List - Last Reconciled 06/25/25 by Dorian Amin MD albuterol sulfate 90 mcg/actuation 2 puffs PO Q4H PRN azelastine 2 sprays intranasal BID 30 days fluticasone propionate 50 mcg/actuation 2 sprays intranasal DAILY 30 days wzqpusybhia-hpmcnvvfw-ljbkalge 200-62.5-25 mcg (Trelegy Ellipta) 1 ea PO DAILY montelukast 10 mg PO DAILY nebulizers As directed HPI Comments Details: Joyce returns for follow-up. In the past, seen regarding palpitations. Workup had shown isolated supraventricular/ventricular ectopy. Recently, she was apparently trimming some bushes and in that setting, developed chest pain jaw numbness. She believes it was extremely hot that day with temperature eating 100 degrees or so during the heat wave. Subsequently, she has stopped doing the [employer] work and went inside the house and took aspirin. After that, she felt better. She states that the episode lasted for 2 hours or so. She has a history of asthma but does not feel like a current episode was related to asthma. Somehow she feels as though it was severe exertion from heat. She has not had any recurrence of this. She has got no known coronary disease. Per notes, has had hypertension in the past and Amlodipine was tried by PCP but she got dizzy and was stopped. [facility] Medical History (Updated 06/25/25 @ 13:24 by Dorian Amin MD) Chronic bronchitis Asthma Allergies Surgical History No pertinent past surgical history Family History Father No problems noted. Mother No problems noted. Social History Alcohol intake: never Patient Tobacco Use Status: Never used Tobacco Current occupational status: disabled Current occupation: rt hand Review of Systems Const Reports headache(s) and Denies weakness ENT Denies dizziness and Reports headache(s) Card Denies chest pain, Reports chest pain with activity, Denies syncope, Denies rapid heart rate, Denies pedal edema, Denies edema, Denies leg edema, Denies lightheadedness, Denies palpitations, Denies dyspnea, Reports dyspnea on exertion and Denies orthopnea Resp Denies cough, Denies dyspnea and Reports dyspnea on exertion GI Denies hematochezia and Denies change in stool character Musc Denies abnormal gait, Reports muscle cramps, Denies muscle weakness, Denies numbness, Denies radiating pain into limb and Denies tingling Neuro Denies abnormal gait, Denies dizziness, Denies syncope, Reports headache(s), Denies numbness, Denies tingling and Denies weakness Endo Denies palpitations Physical Exam Vital Signs: Last Vital Signs Pulse 72 06/25/25 13:08 BP 120/62 06/25/25 13:08 BMI result Body Mass Index 28.7 Const General: comfortable and no acute distress Orientation/consciousness: patient oriented x3 HEENT Other: Unremarkable Head: Yes normal to inspection Neck Neck: Yes normal visual inspection Chest Chest palpation & inspection: normal inspection of the chest Resp Auscultation: clear to auscultation bilaterally Cardio Palpation: normal PMI Heart sounds: S1 normal heart sound present, S2 normal heart sound present, no gallops, no murmurs and no rubs GI Palpation (GI): Soft to palpation Back/Spine/Pelvis Other: unremarkable Skin General skin exam: no rashes or lesions noted Neuro General: patient oriented x3 Extrem General: Yes normal to inspection Psych Mental Status: mental status grossly normal Office Procedures EKG Details: EKG with underlying sinus rhythm at 72/Min; nonspecific ST-[place] changes; [place]. [id number], Complete Assessment & Plan Assessment & Plan (1) Precordial chest pain: Code(s): R07.2 - Precordial pain Category: Medical (2) Atrial arrhythmia: Code(s): I49.8 - Other specified cardiac arrhythmias Category: Medical (3) PVC (premature ventricular contraction): Code(s): I49.3 - Ventricular premature depolarization Category: Medical Plan Previously, she underwent cardiac workup. Holter from PCP- minimal supraventricular ectopy with a burden of only 0.1%. Some short runs noted. Longest is 13 beats. Fastest is 115/Min. Also rare ventricular ectopy. No significant pauses. Echocardiogram with preserved LVEF-57%. Otherwise, unremarkable. Due to the new episode of chest discomfort and jaw discomfort during [employer] work, we will evaluate for exertional angina. We will do an exercise stress echocardiogram. She has not had any further episodes and she will watch her for the same. Follow-up after the above. Discussion Notes I discussed with the patient the plan to conduct a stress test to evaluate her cardiac response to exertion, given her recent episode of chest pain and jaw numbness. We talked about the importance of ruling out any serious cardiac issues. Patient was informed and verbally consented to the use of an ambient scribe for clinic note documentation during this visit. Orders: Orders CA echo stress exercise Today R07.2 - Precordial pain Patient Instructions: - Follow up for the scheduled stress test to evaluate heart function. - Monitor for any recurrence of chest pain or jaw numbness and seek immediate care if symptoms return. - Continue managing asthma with regular follow-ups. Coding Level of Care Code Est Pt Level 4 (33824) Complex EM visit Add On G2211 Diagnoses Precordial chest pain R07.2 Atrial arrhythmia I49.8 PVC (premature ventricular contraction) I49.3 CPT Codes EKG - CPT: 56522-[id number], Complete ([id number])
--- OUTSIDE RECORDS SUMMARY | 2025-06-25 13:26 | XMS_ITS | Clinical Summary ---
Author Organization [facility] Address [address] [address] Phone Care Team Providers Care Doper Operator Name Role Phone Pcp, Unknown Primary Care Provider Mercedes Foster MD Unavailable Allergies Active Allergy Reactions Criticality Noted Date Comments Histamine H2 Inhibitors 08/12/2022 Morphine 08/12/2022 Oxycodone-Acetaminophen 08/12/2022 Medications FLOVENT HFA 220 mcg/actuation inhaler 2 Active albuterol (ACCUNEB) 0.63 mg/3 mL nebulizer solution Take 1 ampule by nebulization every 6 (six) hours as needed for wheezing. Active albuterol 90 mcg/actuation inhaler Inhale 2 puffs into the lungs every 6 (six) hours as needed for wheezing. Active meloxicam (MOBIC) 15 MG tablet Take 1 tablet (15 mg total) by mouth daily. 30 tablet 2 Active Active Problems No known active problems Social History Tobacco Use Types Packs/Day Years Used Date Smoking Tobacco: Never Smokeless Tobacco: Never Alcohol Use Standard Drinks/Week Comments Never 0 (1 standard drink = 0.6 oz pur e alcohol) Education Answer Date Recorded Are you interested in more education? Not on kayy e 02/25/2023 Are you concerned about learning? Not on file 02/25/2023 No 02/25/2023 No 02/25/2023 Digital Access Answer Date Recorded No 03/26/2023 No 03/26/2023 No 03/26/2023 Reliable internet access at home? Not on file 03/26/2023 Device with a working camera? Not on file Comments Unknown Sex and Gender Information Value Date Recorded Sex Assigned at Not on file Legal Sex Female 9:53 AM EDT Gender Identity Not on file Sexual Orientation Not on file Plan of Treatment Health Maintenance Due Date Last Done Comments LIPID PANEL 1956 DEPRESSION SCREENING 1968 HEPATITIS C SCREENING 1974 MAMMOGRAM 1996 COLOGUARD 2001 COLONOSCOPY 2001 COLORECTAL CANCER SCREENING 2001 FIT TEST 2001 FOBT 2001 SIGMOIDOSCOPY 2001 VIRTUAL COLONOSCOPY 2001 PNEUMOCOCCAL VACCINES (50+ y ears) (1 of 1 - PCV) 2006 ZOSTER VACCINES (1 of 2) 2006 OSTEOPOROSIS SCREENING INITI AL (ONE-TIME) 2021 COVID-19 VACCINE (1 - 2023-2 5 season) 2024 INFLUENZA VACCINE (#1) 2025 08/15/2023 RSV VACCINE (1 - 1-dose 75+ series) 2031 Adult Td,Tdap Booster 04/07/2033 04/07/2023 SMOKING STATUS SCREENING (On ce After 26 Yrs) Completed 08/12/2022 HEPATITIS A VACCINES Aged Out No long er eligible based on patient's age to complete this topic HIB VACCINES Aged Out No longer eligi ble based on patient's age to complete this topic MENINGOCOCCAL VACCINES (ACWY) Aged Out No longer eligible based on patient's age to complete this topic MENINGOCOCCAL VACCINES (B) Aged Out N o longer eligible based on patient's age to complete this topic Medical Devices Not on file Insurance MEDICARE PART A & B [facility] MEDICARE REPLACEMENT MEDICARE PART A & B [facility] MEDICARE REPLACEMENT * Guarantor: Joyce Mota Account Type Relation to Patient Date of Phone Billing Address Personal/Family Self 1955 [facility] [address] [place] [address] MEDICARE PART A & B [facility] MEDICARE REPLACEMENT * Guarantor: Joyce Mota Account Type Relation to Patient Date of Phone Billing Address Personal/Family Self 1955 [address] [place] [address] MEDICARE PART A & B [facility] MEDICARE REPLACEMENT MEDICARE PART A & B [facility] MEDICARE REPLACEMENT MEDICARE PART A & B [facility] MEDICARE REPLACEMENT * Guarantor: Joyce Mota Account Type Relation to Patient Date of Phone Billing Address Personal/Family Self 1955 [address] [place] [address] MEDICARE PART A & B [facility] MEDICARE REPLACEMENT * Guarantor: Joyce Mota Account Type Relation to Patient Date of Phone Billing Address Personal/Family Self 1955 [address] [place] [address] MEDICARE PART A & B [facility] MEDICARE REPLACEMENT * Guarantor: Joyec Mota Account Type Relation to Patient Date of Phone Billing Address Personal/Family Self 1955 [address] [place] [address] MEDICARE PART A & B [facility] MEDICARE REPLACEMENT * Guarantor: Joyce Mota Account Type Relation to Patient Date of Phone Billing Address Personal/Family Self 1955 [address] [place] [address] * Guarantor: Joyce Mota Account Type Relation to Patient Date of Phone Billing Address Personal/Family Self 1955 [address] [place] [address] * Guarantor: Joyce Mota Account Type Relation to Patient Date of Phone Billing Address Personal/Family Self 1955 [address] [place] [address] * Guarantor: Joyce Mota Account Type Relation to Patient Date of Phone Billing Address Personal/Family Self 1955 [address] [place] [address] * Guarantor: Joyce Mota Account Type Relation to Patient Date of Phone Billing Address Personal/Family Self 1955 [address] [place] [address] * Guarantor: Joyce Mota Account Type Relation to Patient Date of Phone Billing Address Personal/Family Self 1955 [address] [place] [address] * Guarantor: Joyce Mota Account Type Relation to Patient Date of Phone Billing Address Personal/Family Self 1955 [address] [place] [address] * Guarantor: Joyce Mota Account Type Relation to Patient Date of Phone Billing Address Personal/Family Self 1955 [address] [place] [address] * Guarantor: Joyce Mota Account Type Relation to Patient Date of Phone Billing Address Personal/Family Self 1955 [address] [place] [address] Care Teams Doper Operator Relationship Specialty Start Date End Date Pcp, Unknown PCP - General 03/17/22 Mercedes Goel MD [address] [place] [id number] Internal Medicine 03/17/22 Additional Source Comments The information contained in this document represents components of the legal health record. It is not the complete legal health record.[facility]
== END 2025-06-25 13:35 | disposition home or self-care (01) ==
LOC: HO.HCS 13:00
PROVIDERS: PCP Internal Medicine; Visit Provider Internal Medicine
DX: R07.2 Precordial pain (principal); I49.8 Other specified cardiac arrhythmias; I49.3 Ventricular premature depolarization
CPT/HCPCS: 93010; 99214; G2211

== ENCOUNTER → 2025-06-25 12:59 | Outpatient (BNVA) | payer MEDICARE, MEDICAID, SELFPAY | PROVIDERS: PCP Internal Medicine; Visit Provider Internal Medicine | DX: I49.3 Ventricular premature depolarization (principal); I49.8 Other specified cardiac arrhythmias; R07.2 Precordial pain | CPT/HCPCS: 93005; 99212 ==

== ENCOUNTER 2025-07-07 19:02 | Emergency (ER) | payer MEDICARE, MEDICAID, SELFPAY ==
--- NOTE | ~2025-07-07 | XR_ITS ---
CLINICAL HISTORY: pain 2 view right tibia-fibula Comparison: None provided Findings No fractures or dislocations. No joint effusion. No significant arthritic change. No radiopaque foreign body. IMPRESSION: 1. Normal right tibia-fibula This document has been electronically signed by: Getachew Culp MD on 07/07/2025 21:45:45
--- NOTE | ~2025-07-07 | CT_ITS ---
CLINICAL HISTORY: fall, head strike, pain CT head without contrast Comparison: None provided Findings: No intra-axial mass, midline shift, hydrocephalus, or acute hemorrhage. No significant atrophy-like change or white matter disease. Physiologic mineralization in the bilateral basal ganglia. There is no sinus or mastoid fluid. The orbits are unremarkable. No skull fracture. IMPRESSION: 1. No acute intracranial findings. This document has been electronically signed by: Getachew Culp MD on 07/07/2025 21:49:51
--- NOTE | ~2025-07-07 | CT_ITS ---
CLINICAL HISTORY: fall, head strike, pain CT cervical spine without contrast Comparison: None provided Findings: Straightening of the cervical spine is likely positional. Mild multilevel degenerative changes. No acute fractures or dislocations. No acute findings on limited view of the intracranial contents. Small bilateral thyroid nodules measuring up to 7 mm. No further follow-up is necessary for nodules of this size. No consolidation or effusion at the lung apices. IMPRESSION: No acute findings. This document has been electronically signed by: Getachew Culp MD on 07/07/2025 21:57:44
[2025-07-07 19:41] VITALS: BP 152/82; PULSE 87; RESP 20; TEMP 36.3; O2SAT 99; BMI 29.1
--- NOTE | 2025-07-07 19:47 | ED_ITS ---
HPI - General Adult General Chief complaint: Extremity Injury, Lower Stated complaint: head injury; right leg injury (fall) Time Seen by Provider: 07/08/25 00:25 Source: patient, RN notes reviewed and old records reviewed Mode of arrival: ambulatory Limitations: no limitations History of Present Illness ED Provider: Chapin HPI narrative: 70-year-old female presents for evaluation of a head injury. Patient reports that she was emptying the water from her D humidifier prior to arrival. She was carrying the water bucket up the stairs. She states that she leaned in the railing for balance in the railing fell causing her to fall onto the ground. She struck the top of her head an injured her right lower leg Denies any loss of consciousness. She complains of headache She has a very small laceration to the right lower leg Related Data Home Medications ?Medication ?Instructions ?Recorded ?Confirmed albuterol sulfate 90 mcg/actuation 2 puff PO Q4H PRN 0 06/20/22 06/25/25 aerosol inhaler montelukast 10 mg tablet 10 mg PO DAILY 11/10/2305/31 nebulizers 11/10/23 Previous Rx's ?Medication ?Instructions ?Recorded fluticasone propionate 50 2 spray intranasal DAILY 30 days 11/10/23 mcg/actuation nasal #15.8 mL spray,suspension azelastine 137 mcg (0.1 %) nasal 2 spray intranasal BI D 30 days #30 12/03/24 spray mL fluticasone fur. 200 mcg-umeclid 1 ea PO DAILY #60 ea 05/12/25 62.5 mcg-vilant 25 mcg inhalat.powder (Trelegy Ellipta) Allergies Allergy/AdvReac Type Severity Reaction Status Date / Time acetaminophen (From Percocet) Allergy vomitting Verified 07/07/25 19:52 Antihistamines - Alkylamine Allergy itching Verified 07/07/25 19:52 morphine Allergy bp goes up Verified 07/07/25 19:52 and feels pins and needles oxycodone (From Percocet) Allergy vomitting Verified 07/07/25 19:52 Review of Systems Constitutional: Constitutional: Denies body ache(s), Denies chills, Denies fever(s), Denies frequent falls and Reports headache(s) Eyes: Eyes: Denies blurry vision and Denies exophthalmos ENT: Denies vertigo, Denies dizziness and Reports headache(s) Cardiovascular: Cardiovascular: Denies chest pain and Denies dyspnea on exe rtion Respiratory: Respiratory: Denies cough and Denies dyspnea on exertion Gastrointestinal: Gastrointestinal: Denies abdominal pain, Denies nausea and Denies vomiting Musculoskeletal: Musculoskeletal: Denies back pain Integumentary/Breasts: Skin/Breast: Denies rash Neurologic: Denies vertigo, Denies dizziness, Denies frequent falls and Reports headache(s) [facility] Past Medical History Medical History (Updated 07/08/25 @ 00:47 by Avni Samson) Chronic bronchitis Asthma Allergies Surgical History No pertinent past surgical history Family History Family History Father No problems noted. Mother No problems noted. Social History Social History Alcohol intake: never Patient Tobacco Use Status: Never used Tobacco Advance Directives: No Advance Directives Information Provided: Yes Do you have a plan to hurt others: No Plan Current occupational status: disabled Current occupation: rt hand Physical Exam ED Vital Signs: Vital Signs - 24 hr 07/07/25 19:41 07/08/25 00:46 07/08/25 01:01 Temperature 97.3 F 98.2 F 98.2 F Pulse Rate 87 72 72 Respiratory Rate 20 20 20 Blood Pressure 152/82 H 140/67 H 140/67 H Pulse Oximetry 99 96 96 Oxygen Delivery Method Room Air Room Air Room Air BMI result Body Mass Index 29.1 Const General: healthy appearing, comfortable, no acute distress, alert and awake Nutritional Appearance: well nourished Orientation/consciousness: patient oriented x3 HENMT Other: There is a small cutaneous hematoma to the top of the scalp Eyes Eyelids: Yes eyelids normal Conjunctivae: conjunctivae normal Sclerae: sclerae normal Corneas: corneas normal Pupils: Equal, round and reactive pupils present EOM: EOMs intact bilaterally Neck Neck: Yes full ROM Resp Effort & Inspection: normal respiratory effort, able to speak in complete sentences and not labored Cardio Rate: regular rate Rhythm: regular rhythm GI Inspection: No distended Palpation (GI): Soft to palpation, not firm, nontender, no guarding and not rigid Skin Other: There is a small, subcentimeter laceration to the right castillo without any active bleeding. General skin exam: elasticity normal Neuro General: patient oriented x3 Cranial nerves: Yes Equal, round and reactive pupils present and Yes Bilaterally intact EOM present Cognition (Neuro): normal cognition Extrem Other: Moving all extremities well without any obvious deformities Course Course Course Narrative: Rapid medical examination performed in triage by Evy Weaver PA-C. Patient is a 70 year old assigned female at presenting to the emergency department with a headache, neck pain, right lower leg pain after a fall. Detailed physical exam and review of systems are deferred to the personnel research psychologist. Imaging ordered. Patient placed back in the waiting room pending room availability and results. Medications Administered Discontinued Medications Generic Name Dose Route Start Last Admin Trade Name Freq PRN Reason Stop Dose Admin Acetaminophen 975 mg 07/08/25 00:46 07/08/25 01:00 Acetaminophen 325 Mg Tablet PO 07/08/25 00:47 975 mg ONCE ONE Administration Medical Decision Making Medical Decision Making [facility] Narrative: 70-year-old female presents for evaluation after a fall. This is a nonsyncopal fall. She had a CT scan of her head and cervical spine with no acute fractures. X-ray shows no fractures or extremity. The wound was cleaned and dressed with a sterile bandage, just not requiring sutures. Differential Diagnosis Differential Diagnoses: The differential diagnosis associated with the presentation includes Concussion Minor head injury Contusion Leg fracture Laceration Radiology Impression Discussion of test interpretation with radiology: I have reviewed the radiologist's reading. Radiologist Impression: Findings: No intra-axial mass, midline shift, hydrocephalus, or acute hemorrhage. No significant atrophy-like change or white matter disease. Physiologic mineralization in the bilateral basal ganglia. There is no sinus or mastoid fluid. The orbits are unremarkable. No skull fracture. IMPRESSION: 1. No acute intracranial findings. This document has been electronically signed by: Getachew Culp MD on 07/07/2025 21:49:51 Findings: Straightening of the cervical spine is likely positional. Mild multilevel degenerative changes. No acute fractures or dislocations. No acute findings on limited view of the intracranial contents. Small bilateral thyroid nodules measuring up to 7 mm. No further follow-up is necessary for nodules of this size. No consolidation or effusion at the lung apices. IMPRESSION: No acute findings. This document has been electronically signed by: Getachew Culp MD on 07/07/2025 21:57:44 Findings No fractures or dislocations. No joint effusion. No significant arthritic change. No radiopaque foreign body. IMPRESSION: 1. Normal right tibia-fibula This document has been electronically signed by: Getachew Culp MD on 07/07/2025 21:45:45 Discharge Plan Discharge Clinical Impression: Contusion of leg, right, Head injury Patient Disposition: Home, Self-Care Instructions: Head Injury (ED) Additional Instructions: Your x-ray of your leg did not show any fractures pain The CT scan of your head and cervical spine did not show any major injury either. In his possible that you have a concussion. Take Tylenol as needed for pain. You may apply ice to the sore area every 4 hours for 10-15 minutes Prescriptions: No Action Trelegy Ellipta 200-62.5-25 mcg blister with device 1 ea PO DAILY Qty: 60 0RF albuterol sulfate 90 mcg/actuation HFA aerosol inhaler 2 puff PO Q4H PRN montelukast 10 mg tablet 10 mg PO DAILY (DME) nebulizers Misc See Rx Instructions .ROUTE Rx Instructions: As directed fluticasone propionate 50 mcg/actuation spray,suspension 2 spray intranasal DAILY 30 Days Qty: 15.8 11RF azelastine 137 mcg (0.1 %) spray,non-aerosol 2 spray intranasal BID 30 Days Qty: 30 6RF Rx Instructions: administer into each nostril Interventions: ED Discharge Assessment Last Done: 07/08/25 01:01 Discharge Date/Time: 07/08/25 01:02 Print Language: Portuguese
[2025-07-08 00:46] VITALS: BP 140/67; PULSE 72; RESP 20; TEMP 36.8; O2SAT 96
--- OUTSIDE RECORDS SUMMARY | 2025-07-08 00:47 | XMS_ITS | Clinical Summary ---
Demographics Address [address] [place] [address] Home Phone Home Phone Preferred Language Tamazight Marital Status Single Pentecostalism Affiliation Unknown Race Other Race Ethnic Group Not or Lati no Author Organization [facility] Address [address] [address] Phone Care Team Providers Care Inker Name Role Phone Pcp, Unknown Primary Care [...] 2006 OSTEOPOROSIS SCREENING INITI AL (ONE-TIME) 2021 INFLUENZA VACCINE (#1) 2025 08/15/2023 COVID-19 VACCINE (1 - 2023-2 5 season) 2025 RSV VACCINE (1 - 1-dose 75+ series) [...] Insurance MEDICARE PART A & B [facility] MEDICARE REPLACEMENT MEDICARE PART A & B [facility] MEDICARE REPLACEMENT * Guarantor: Joyce Mota Account Type Relation to Patient Date of Phone Billing Address Personal/Family Self 1955 [facility] [address] [place] [address] MEDICARE PART A & B Member Subscriber Plan / Payer (Ef fective 2022-Present) Name:Joyce Mota Member ID:[id number] Relation to Subscriber:Self Name:Joyce Mota Subscriber ID:[id number] Payer ID:[id number] Group ID:Not on file Type:Medicare Address: [employer] [facility] [address] [place] [address] [facility] MEDICARE REPLACEMENT * Guarantor: Joyce Mota Account Type Relation to Patient Date of Phone Billing Address Personal/Family Self 1955 [address] [place] [address] MEDICARE PART A & B [facility] MEDICARE REPLACEMENT MEDICARE PART A & B Member Subscriber Plan / Payer (Ef fective 2022-Present) Name:Joyce Mota Member ID:[id number] Relation to Subscriber:Self Name:Joyce Mota Subscriber ID:[id number] Payer ID:[id number] Group ID:Not on file Type:Medicare Address: [employer] [facility] [address] [place] [address] [facility] MEDICARE REPLACEMENT MEDICARE PART A & B [facility] MEDICARE REPLACEMENT * Guarantor: Joyce Mota Account Type Relation to Patient Date of Phone Billing Address Personal/Family Self 1955 [address] [place] [address] MEDICARE PART A & B [facility] MEDICARE REPLACEMENT * Guarantor: Joyce Mota Account Type Relation to Patient Date of Phone Billing Address Personal/Family Self 1955 [address] [place] [address] MEDICARE PART A & B [facility] MEDICARE REPLACEMENT * Guarantor: Joyce Mota Account Type Relation to Patient Date of Phone Billing Address Personal/Family Self 1955 [address] [place] [address] MEDICARE PART A & B [facility] MEDICARE REPLACEMENT * Guarantor: Joyce Mota Account Type Relation to Patient Date of Phone Billing Address Personal/Family Self 1955 [address] [place] [address] * Guarantor: Joyce Mota Account Type Relation to Patient Date of Phone Billing Address Personal/Family Self 1955 [address] [place] [address] * Guarantor: Joyce Moat Account Type Relation to Patient Date of Phone Billing Address Personal/Family Self 1955 [address] [place] [address] * Guarantor: Joyce Mota Account Type Relation to Patient Date of Phone Billing Address Personal/Family Self 1955 [address] [place] [address] * Guarantor: Joyce Mota Account Type Relation to Patient Date of Phone Billing Address Personal/Family Self 1955 [address] [place] [address] * Guarantor: Joyce Mota Account Type Relation to Patient Date of Phone Billing Address Personal/Family Self 1955 [address] [place] [address] * Guarantor: Joyce Mota Account Type Relation to Patient Date of Phone Billing Address Personal/Family Self 1955 [address] [place] [address] * Guarantor: Joyce Mota Account Type Relation to Patient Date of Phone Billing Address Personal/Family Self 1955 [address] [place] [address] * Guarantor: Joyce Mota Account Type Relation to Patient Date of Phone Billing Address Personal/Family Self 1955 [address] [place] [address] Care Teams Inker Relationship Specialty Start Date End Date Pcp, Unknown PCP - General 03/17/22 Mercedes Goel MD [address] [place] [id number] Internal Medicine 03/17/22 Additional Source Comments The information contained in this document represents components of the legal health record. It is not the complete legal health record.[facility]
[2025-07-08 01:01] VITALS: BP 140/67; PULSE 72; RESP 20; TEMP 36.8; O2SAT 96
== END 2025-07-08 01:02 | disposition home or self-care (01) ==
PROVIDERS: Emergency Provider Emergency Medicine Emergency Medical Services; PCP Internal Medicine
DX: S80.11XA Contusion of right lower leg, initial encounter (principal); S09.90XA Unspecified injury of head, initial encounter; S81.811A Laceration without foreign body, right lower leg, initial encounter; M79.604 Pain in right leg; R51.9 Headache, unspecified; M54.2 Cervicalgia; X50.1XXA Overexertion from prolonged static or awkward postures, initial encounter; Y93.9 Activity, unspecified; Y92.9 Unspecified place or not applicable; Y99.8 Other external cause status; Z79.899 Other long term (current) drug therapy
CPT/HCPCS: 70450; 72125; 73590; 99212; 99283; 99284

== ENCOUNTER → 2025-07-07 19:48 | Outpatient (BNV) | payer MEDICARE, MEDICAID, SELFPAY | PROVIDERS: Visit Provider Radiology Diagnostic Radiology | DX: M50.33 Other cervical disc degeneration, cervicothoracic region (principal); S09.90XA Unspecified injury of head, initial encounter; M79.661 Pain in right lower leg | CPT/HCPCS: 70450; 72125; 73590 ==

== ENCOUNTER 2025-07-08 13:18 | Outpatient (AMB) | payer MEDICARE, MEDICAID, SELFPAY ==
[2025-07-08 13:21] VITALS: BP 108/56; PULSE 80; O2SAT 97; BMI 29.8
--- NOTE | 2025-07-08 13:21 | MHC.OFFVIS ---
Vital Signs 07/08/25 13:21 Height 5 ft 1 in Weight 157 lb 10.088 oz BMI 29.8 BP 108/56 L Blood Pressure Location Lt brachial Position Sitting Pulse 80 Pulse Source Pulse Oximeter Pulse Oximetry (%) 97 Oxygen Delivery Method Room Air Intake Visit Reasons: Asthma Clarity Specialists Required: No Accompanied by: Self / Same As Patient Allergies acetaminophen (From Percocet) Allergy (Verified 07/08/25 13:23) vomitting Antihistamines - Alkylamine Allergy (Verified 07/08/25 13:23) itching morphine Allergy (Verified 07/08/25 13:23) bp goes up and feels pins and needles oxycodone (From Percocet) Allergy (Verified 07/08/25 13:23) vomitting HPI Comments Details: The patient is a 70 year woman with known history of using her rescue inhaler multiple times a day. The patient is stop her maintenance inhalers because they just were not working for her. The patient does not required any prednisone however. She also states she has significant allergies. She states that initially her asthma started after living in a moldy apartment in the afterwards she when she moved out she still had her symptoms. She was being evaluated previously by Pulmonary at [place]. But then her provide her left and she is been lost to follow-up. She did have her pulmonary function studies done recently at [facility] we did review them. The patient appears to have a partially reversible obstruction concerning with severe asthma uncontrolled and or asthma COPD overlap syndrome. Explained to him the importance of using respiratory therapy to try to maximize her bronchodilation effect that she has basilar PFTs. The patient also basilar significant symptoms may be a good candidate for biologic therapy. Will go ahead and we test her allergies and also blood work at this time. The patient also has significant chronic congestion. We did try to get a sputum sample we were able to do so. Therefore, we did provide her a sputum cup and she will try to provide 1 at home. Likely that the chronic bronchitis is mainly a asthmatic bronchitis picture due to her significant allergies. As far as exposures she does have a dog and also has an exotic birds in the house. She does clean the cage outside and tries to minimize exposure to the father's. Will go ahead and tested hypersensitivity panel to see if there is a component of hypersensitivity pneumonitis. at this time will go ahead and maximize her respiratory therapy by placing her on Trelegy and she can continue her rescue inhaler as needed. Will follow-up after the blood work and also have her get an x-ray and sputum culture. 11/10/2023 the patient is here for pulmonary follow-up visit. She has doing a little better. The Trelegy has been partially helpful. Although she still continues have chest tightness cough chest congestion and wheezing. [id number] severity. She does use her rescue inhaler typically in a daily basis. We did review her blood work. Her eosinophils are within normal limits and her IgE just slightly elevated. Allergy testing in a very significant. Therefore does not appear to have a significant allergic component. Therefore, based on the patient's symptoms of chronic bronchitis will go ahead and start her on azithromycin 3 times a week. She can not get an EKG when she starts the medicine to make sure that it QT continues to be stable. If the patient continues to be symptomatic after that therapy and if she requires additional prednisone then test prior, biologic therapy, will be the next often. The patient also may be a good candidate for Daliresp. Will reassess when she returns in 3-4 months. 12/03/2024 the patient is here for a pulmonary follow-up visit the patient overall is doing okay. Although recently she was exposed to mold in her condominium in his resulting worsening respiratory symptoms wheezing and tightness. She has been on the Trelegy and also on Singulair. Unfortunately she can not tolerate Zyrtec his it can cause palpitations. Therefore I will send her Astelin nasal spray to help her with the significant nasal congestion and asthma symptoms. The patient would also be a candidate for biologics for her significant asthma but she is not interested at this time. Therefore will maximize her chronic rhinitis therapy she will continue with her inhalers and she also has a nebulizer available for worsening symptoms. She is going to minimize the exposure to the mold she is hoping to move out of her condominium. 07/08/2025 the patient is here for pulmonary follow-up visit. Recently she had a fall she hurt her head and also her leg. She went to the ER. Now she is feeling a little bit better from that standpoint although still has a headache. The patient is still having hard time with the breathing. She continues on the Trelegy and also continues on her respiratory medications. She uses her nebulizer regularly. She still has significant chest congestion. The patient is willing to use biologic therapies if indicated. Will go ahead and have her get blood work. In the meantime will start her on azithromycin 3 times a week. She will continue with respiratory medicine. If the patient worsens she may need some prednisone I will send some to the pharmacy. [facility] Medical History (Updated 07/08/25 @ 00:47 by Avni Samson) Chronic bronchitis Asthma Allergies Surgical History No pertinent past surgical history Family History Father No problems noted. Mother No problems noted. Social History Alcohol intake: never Patient Tobacco Use Status: Never used Tobacco Current occupational status: disabled Current occupation: rt hand Review of Systems Const Denies fever(s) Eyes Denies itchy eyes ENT Reports nasal congestion and Reports nasal discharge Card Denies chest pain Resp Reports chest congestion, Reports cough and Reports wheezing GI Reports no additional complaints Musc Reports no additional complaints Skin/Breast Denies rash Vini/Lymph Denies lymphadenopathy Aller/Immun Denies itchy eyes and Reports wheezing Physical Exam Vital Signs: Last Vital Signs Pulse 80 07/08/25 13:21 BP 108/56 L 07/08/25 13:21 Pulse Ox 97 07/08/25 13:21 Oxygen Delivery Method Room Air 07/08/25 13:21 BMI result Body Mass Index 29.8 Const General: comfortable HEENT Head: Yes normocephalic Neck Neck: Yes supple Chest Chest palpation & inspection: normal inspection of the chest Resp Effort & Inspection: normal respiratory effort and prolonged expiratory phase Auscultation: no rhonchi, no wheezes and diminished lung sounds Cardio Rate: regular rate Rhythm: regular rhythm Heart sounds: S1 normal heart sound present and S2 normal heart sound present GI Palpation (GI): Soft to palpation Extrem General: Yes no clubbing, cyanosis or edema Assessment & Plan Assessment & Plan (1) Asthma: Code(s): J45.909 - Unspecified asthma, uncomplicated Category: Medical Qualifiers: Asthma complication type: uncomplicated Asthma persistence: persistent Asthma severity: severe Qualified Code(s): J45.50 - Severe persistent asthma, uncomplicated (2) Chronic bronchitis: Code(s): J42 - Unspecified chronic bronchitis Category: Medical Qualifiers: Chronic bronchitis type: mucopurulent Qualified Code(s): J41.1 - Mucopurulent chronic bronchitis (3) Allergies: Code(s): T78.40XA - Allergy, unspecified, initial encounter Category: Medical Qualifiers: Encounter type: initial encounter Qualified Code(s): T78.40XA - Allergy, unspecified, initial encounter Plan continue Trelegy 200 Astelin nasal spray continue Fluticasone nasal sprsy nasal risning (lanny med sinus rinse) Bloodwork ?Biologics CXR strta azithromycin MWF Start Prednisone if no better GAMAL as needed F/U 3-4 months Orders: Orders Hypersensitive Pneumonitis Prf Today J45.50 - Severe persistent asthma, uncomplicated, R91.8 - Other nonspecific abnormal finding of lung field, T78.40XA - Allergy, unspecified, initial encounter Erythrocyte Sedimentation Rate Today J45.50 - Severe persistent asthma, uncomplicated, T78.40XA - Allergy, unspecified, initial encounter Resp Allergy Profile Region I Today J45.50 - Severe persistent asthma, uncomplicated, R91.1 - Solitary pulmonary nodule, T78.40XA - Allergy, unspecified, initial encounter XR chest 2V Today J41.1 - Mucopurulent chronic bronchitis Complete Blood Count Auto Diff Today J45.50 - Severe persistent asthma, uncomplicated, T78.40XA - Allergy, unspecified, initial encounter Immunoglobulin E Today J45.50 - Severe persistent asthma, uncomplicated, T78.40XA - Allergy, unspecified, initial encounter Immunoglobulin G Subclasses Today J45.50 - Severe persistent asthma, uncomplicated, T78.40XA - Allergy, unspecified, initial encounter Basic Metabolic Panel Today J45.50 - Severe persistent asthma, uncomplicated, T78.40XA - Allergy, unspecified, initial encounter Medications: New prednisone PO daily; Take 2 tabs daily x 5 days, then 1 tablet daily x 5 days 15 tabs 0RF 10 days azithromycin Take 1 tablet on Monday/Monday/Monday 250 mg PO 3XW 12 tabs 1RF 28 days K21.9 - Gastro-esophageal reflux disease without esophagitis Coding Level of Care Code Est Pt Level 4 (77171) Complex EM visit Add On G2211 Diagnoses Severe persistent asthma without complication J45.50 Asthma complication type: uncomplicated Asthma persistence: persistent Asthma severity: severe Mucopurulent chronic bronchitis J41.1 Chronic bronchitis type: mucopurulent Allergy, initial encounter T78.40XA Encounter type: initial encounter Time Spent (min) 17
--- OUTSIDE RECORDS SUMMARY | 2025-07-08 15:42 | XMS_ITS | Clinical Summary ---
Demographics Address [address] [place] [address] Home Phone Home Phone Preferred Language Occitan Marital Status Single Temple Affiliation Unknown Race Other Race Ethnic Group Not or Lati no Author Organization [facility] Address [address] [address] Phone Care Team Providers Care Loom Stop Checker Name Role Phone Pcp, Unknown Primary Care [...] Insurance MEDICARE [place] A [place] [facility] MEDICARE REPLACEMENT MEDICARE [place] [facility] MEDICARE REPLACEMENT * Guarantor: Joyce Mota Account Type Relation to Patient Date of Phone Billing Address Personal/Family Self 1955 [facility] [address] [place] [address] MEDICARE PART A & B [facility] MEDICARE REPLACEMENT * Guarantor: Joyce Mota Account Type Relation to Patient Date of Phone Billing Address Personal/Family Self 1955 [address] [place] [address] MEDICARE PART A & B [facility] MEDICARE REPLACEMENT MEDICARE PART A & B [facility] MEDICARE REPLACEMENT MEDICARE PART A & B [facility] MEDICARE REPLACEMENT * Guarantor: Joyce Mota Account Type Relation to Patient Date of Phone Billing Address Personal/Family Self 1955 [address] [place] [address] MEDICARE PART A & [place] [facility] MEDICARE REPLACEMENT * Guarantor: Joyce Mota Account Type Relation to Patient Date of Phone Billing Address Personal/Family Self 1955 [address] [place] [address] MEDICARE [place] A & [place] [facility] MEDICARE REPLACEMENT * Guarantor: Joyce Mota Account Type Relation to Patient Date of Phone Billing Address Personal/Family Self 1955 [address] [place] [address] MEDICARE PART A & B [facility] MEDICARE REPLACEMENT * Guarantor: Joyce Mota Account Type Relation to Patient Date of Phone Billing Address Personal/Family Self 1955 [address] [place] [address] * Guarantor: Joyce Mota Account Type Relation to Patient Date of Phone Billing Address Personal/Family Self 1955 [address] [place] [address] * Guarantor: Joyce Mota Account Type Relation to Patient Date of Phone Billing Address Personal/Family Self 1955 [address] [place] [address] * Guarantor: Joyce Mota Account Type Relation to Patient Date of Phone Billing Address Personal/Family Self 1955 [address] [place] [address] * Guarantor: Joyce Mota Account Type Relation to Patient Date of Phone Billing Address Personal/Family Self 1955 [address] [place] [address] * Guarantor: Joyce Mota Account Type Relation to Patient Date of Phone Billing Address Personal/Family Self 1955 [address] [place] [address] * Guarantor: Joyce Mota Account Type Relation to Patient Date of Phone Billing Address Personal/Family Self 1955 [address] [place] [address] * Guarantor: Joyce Mota Account Type Relation to Patient Date of Phone Billing Address Personal/Family Self 1955 [address] [place] [address] * Guarantor: Joyce Mota Account Type Relation to Patient Date of Phone Billing Address Personal/Family Self 1955 [address] [place] [address] Care Teams Loom Stop Checker Relationship Specialty Start Date End Date Pcp, Unknown PCP - General 03/17/22 Mercedes Goel MD [address] [place] [id number] Internal Medicine 03/17/22 Additional Source Comments The information contained in this document represents components of the legal health record. It is not the complete legal health record.[facility]
== END 2025-07-08 13:55 | disposition home or self-care (01) ==
LOC: HO.HPS 13:18
PROVIDERS: PCP Internal Medicine; Visit Provider Hospitalist
DX: J45.50 Severe persistent asthma, uncomplicated (principal); J41.1 Mucopurulent chronic bronchitis; T78.40XA Allergy, unspecified, initial encounter
CPT/HCPCS: 99214; G2211

== ENCOUNTER 2025-07-09 10:25 | Outpatient (REF) | payer MEDICARE, MEDICAID, SELFPAY ==
--- NOTE | ~2025-07-09 | XR_ITS ---
EXAMINATION: XR CHEST 2 VIEWS HISTORY: J41.1 - Mucopurulent chronic bronchitis COMPARISON: There are no prior studies available for comparison. FINDINGS: PA and lateral views of the chest are submitted. There is linear scarring in the upper lobes. The lungs are otherwise clear. There is no pleural effusion, pneumothorax, or pulmonary vascular congestion. The heart is normal in size and is calcification of the aortic knob. There is degenerative disc disease of the spine. XR/XR chest 2V IMPRESSION: No acute cardiopulmonary abnormality. Electronically signed by: Lazaro Gómez MD 07/09/2025 12:12 PM EDT
[2025-07-09 10:55] LABS: MANUAL DIFF FLAG NO
[2025-07-09 11:13] LABS: Hematocrit 41.8 % (37.0-47.0); Hemoglobin 13.4 g/dl (12.0-16.0); Imm Gran Abs Auto 0.03 X10*3/uL (0.00-0.03); Imm Gran Pct Auto 0.4 % (0.0-0.4); Lymphocytes Absolute Auto 1.6 X10*3/uL (1.2-4.9); Mean Corpuscular HGB Conc 32.1 g/dl (31.0-35.0); Mean Corpuscular Hemoglobin 29.1 pg (27.0-33.0); Mean Corpuscular Volume 90.9 fL (80.0-98.0); NRBC Abs Auto 0.000 X10*3/uL (0.0-0.012); NRBC Pct Auto 0.0 /100WBC (0.0-0.2); Platelet Count 223 X10*3/uL (160-400); Red Blood Count 4.60 X10*6/uL (4.20-5.50); White Blood Count 7.5 X10*3/uL (4.8-10.8)
[2025-07-09 12:01] LABS: Anion Gap 10 (12-20); Blood Urea Nitrogen 10 mg/dL (9-16); Calcium 9.2 mg/dL (8.4-10.2); Carbon Dioxide 29 mmol/L (22-29); Chloride 106 mmol/L (96-108); Estimated Glomerular Filt Rate > 60; Potassium 4.4 mmol/L (3.3-5.1); Sodium 141 mmol/L (135-145)
--- OUTSIDE RECORDS SUMMARY | 2025-07-09 12:41 | XMS_ITS | Clinical Summary ---
Demographics Address [address] [place] [address] Home Phone Home Phone Preferred Language Portuguese Marital Status Single Orthodoxy Affiliation Unknown Race Other Race Ethnic Group Not or Lati no Author Organization [facility] Address [address] [address] Phone Care Team Providers Care Slitter Cut Off Operator Name Role Phone Pcp, Unknown Primary [...] Insurance MEDIC[place] [facility] MEDICARE REPLACEMENT MEDICARE [place] [facility] MEDICARE REPLACEMENT * Guarantor: Joyce Mota Account Type Relation to Patient Date of Phone Billing Address Personal/Family Self 1955 [facility] [address] [place] [address] MEDICARE PART A & B [facility] MEDICARE REPLACEMENT * Guarantor: Joyce Mota Account Type Relation to Patient Date of Phone Billing Address Personal/Family Self 1955 [address] [place] [address] MEDICARE PART A & B [facility] MEDICARE REPLACEMENT MEDICARE PART A & B [facility] MEDICARE REPLACEMENT MEDICARE PART A & B [facility] MEDICARE REPLACEMENT * Guarantor: Joyce Mota Account Type Relation to Patient Date of Phone Billing Address Personal/Family Self 1955 [address] [place] [address] MEDICARE PART A & [place] [facility] MEDICARE REPLACEMENT * Guarantor: Joyce Mota Account Type Relation to Patient Date of Phone Billing Address Personal/Family Self 1955 [address] [place] [address] MEDICARE PART A & [place] [facility] MEDICARE REPLACEMENT * Guarantor: Joyce Mota Account Type Relation to Patient Date of Phone Billing Address Personal/Family Self 1955 [address] [place] [address] MEDICARE PART A & B [facility] MEDICARE REPLACEMENT * Guarantor: Joyce Mota Account Type Relation to Patient Date of Phone Billing Address Personal/Family Self 1955 [address] [place] [address] * Guarantor: Joyce Mota Account Type Relation to Patient Date of Phone Billing Address Personal/Family Self 1955 [address] [place] [address] * Guarantor: Joyce Mota Account Type Relation to Patient Date of Phone Billing Address Personal/Family Self 1955 [address] [place] [address] * Guarantor: Joyce Mota Account Type Relation to Patient Date of Phone Billing Address Personal/Family Self 1955 [address] [place] [address] * Guarantor: Joyce Mota Account Type Relation to Patient Date of Phone Billing Address Personal/Family Self 1955 [address] [place] [address] * Guarantor: Joyce Mota Account Type Relation to Patient Date of Phone Billing Address Personal/Family Self 1955 [address] [place] [address] * Guarantor: Joyce Mota Account Type Relation to Patient Date of Phone Billing Address Personal/Family Self 1955 [address] [place] [address] * Guarantor: Joyce Mota Account Type Relation to Patient Date of Phone Billing Address Personal/Family Self 1955 [address] [place] [address] * Guarantor: Joyce Mota Account Type Relation to Patient Date of Phone Billing Address Personal/Family Self 1955 [address] [place] [address] Care Teams Slitter Cut Off Operator Relationship Specialty Start Date End Date Pcp, Unknown PCP - General 03/17/22 Mercedes Goel MD [address] [place] [address] Internal Medicine 03/17/22 Additional Source Comments The information contained in this document represents components of the legal health record. It is not the complete legal health record.[facility]
[2025-07-10 11:32] LABS: Immunoglobulin G Subclass 1 601 mg/dL (382-929); Immunoglobulin G Subclass 2 262 mg/dL (241-700); Immunoglobulin G Subclass 3 64 mg/dL (22-178); Immunoglobulin G Subclass 4 91.5 mg/dL (4-86); Immunoglobulin G Total 1018 mg/dL (600-1540)
[2025-07-14 18:58] LABS: Class Alternaria alternata 0; Class Aspergillus fumigatus 0; Class Bermuda Grass 0; Class Birch 0/1; Class Cat Dander 0; Class Cladosporium herbarum 0; Class Cockroach 0; Class Common Ragweed 0; Class Cottonwood 2; Class Derm. pterony 0; Class Dermatophagoides farinae 0; Class Dog Dander 0; Class Elm 0; Class Maple Box Elder 0; Class Mountain Cedar 0; Class Mouse Urine Protein 0; Class Mugwort 0; Class Oak 0; Class Penicillium crysogenum 0; Class Rough Pigweed 0; Class Sheep Sorrel 0; Class Sycamore 0; Class Timothy Grass 0; Class Walnut Tree 0; Class White Ash 0; Class White Mulberry 0; D002 - IgE D farinae <0.10 kU/L; E001 - IgE Cat Dander <0.10 kU/L; E005 - IgE Dog Dander <0.10 kU/L; G006 - IgE Timothy Grass <0.10 kU/L; I006-IgE Cockroach, German <0.10 kU/L; M002 - IgE Cladosporium herbar <0.10 kU/L; M003 - IgE Aspergillus fumigat <0.10 kU/L; M006 - IgE Alternaria alternat <0.10 kU/L; T001 IgE Maple/Box Elder <0.10 kU/L; T006 - IgE Cedar, Mountain <0.10 kU/L; T007 - IgE Oak, White <0.10 kU/L; T008 IgE Elm, American <0.10 kU/L; T010 - IgE Walnut <0.10 kU/L; T011 - IgE Maple Leaf Sycamore <0.10 kU/L; T014 - IgE Cottonwood 0.80 kU/L; T015 - IgE Ash, White <0.10 kU/L; T070 - IgE White Mulberry <0.10 kU/L; W001 - IgE Ragweed, Short <0.10 kU/L; W006 - IgE Mugwort <0.10 kU/L; W014 IgE Pigweed, Common <0.10 kU/L; W018 IgE Sheep Sorrel <0.10 kU/L
[2025-07-15 15:58] LABS: Asperg fumigatus Precip Abs NEGATIVE (NEGATIVE); Micropoly faeni Abs NEGATIVE (NEGATIVE); Saccharo pora viridis Abs NEGATIVE (NEGATIVE); Thermo candidus Abs NEGATIVE (NEGATIVE)
== END 2025-07-09 10:26 | disposition home or self-care (01) ==
LOC: HO.LAB 10:25
PROVIDERS: PCP Internal Medicine; Visit Provider Hospitalist
DX: T78.40XA Allergy, unspecified, initial encounter (principal); J45.50 Severe persistent asthma, uncomplicated; R91.1 Solitary pulmonary nodule; R91.8 Other nonspecific abnormal finding of lung field; J41.1 Mucopurulent chronic bronchitis
CPT/HCPCS: 36415; 71046; 80048; 82784; 82785; 85025; 85652; 86003; 86331; 86606; 86609

== ENCOUNTER → 2025-07-09 10:56 | Outpatient (BNV) | payer MEDICARE, MEDICAID, SELFPAY | PROVIDERS: PCP Internal Medicine; Visit Provider Radiology Diagnostic Radiology | DX: J41.1 Mucopurulent chronic bronchitis (principal) | CPT/HCPCS: 71046 ==

== ENCOUNTER → 2025-08-22 11:03 | Outpatient (REF) | payer MEDICARE, MEDICAID, SELFPAY ==
--- NOTE | 2025-08-22 11:07 | CA_ITS ---
Acquisition Time: 2025-08-22 11:12:22 Total Exercise Time: 00:05:00 Test Indications: CP Medications: SEE H&P Protocol: MAY Max HR: 148 BPM 98% of Pred: 151 BPM Max BP: 170/84 mmHG Max Work Load: 4.6 METS Exercise stress test with exercise 5 mins of May Protocol held at Stage 1 with reduced speed of 1.5mph, achieving 94% MPHR, with reports of SOB and leg burning, with isolated PACs and PVCs and rare couplets, with normotensive response to exercise. With T wave inversions inferolaterally in recovery, suggestive of ischemia. In recovery, breathing improved and pt feeling back to baseline. Echo images obtained by tech at rest and post peak exercise. Definity contrast utilized. Test reviewed with Dr. Gardiner. Referred By: Dorian Amin Electronically Signed By: Gume Ken
--- OUTSIDE RECORDS SUMMARY | 2025-08-22 13:11 | XMS_ITS | Clinical Summary ---
Author Organization [facility] Address [address] [address] Phone Care Team Providers Care Propagator Name Role Phone Pcp, Unknown Primary Care [...] (#1) 2025 08/15/2023 COVID-19 VACCINE (1 - 2024-2 6 season) 2025 RSV VACCINE (1 - 1-dose [...] Insurance MEDICARE PART [place] [facility] MEDICARE REPLACEMENT MEDICARE PART A & [place] [facility] MEDICARE REPLACEMENT * Guarantor: Joyce Mota Account Type Relation to Patient Date of Phone Billing Address Personal/Family Self 1955 [facility] [address] [place] [address] MEDICARE PART A & B [facility] MEDIC[facility] REPLACEMENT * Guarantor: Joyce Mota Account Type Relation to Patient Date of Phone Billing Address Personal/Family Self 1955 [address] [place] [address] MEDICARE PART A & B [facility] MEDIC[facility] REPLAC[facility] MEDICARE PART A & B [facility] MEDIC[facility] REPLACEMENT MEDICARE PART A & B [facility] MEDIC[facility] REPLACEMENT * Guarantor: Joyce Mota Account Type Relation to Patient Date of Phone Billing Address Personal/Family Self 1955 [address] [place] [address] MEDICARE PART A & [place] [facility] MEDICARE REPLACEMENT * Guarantor: Joyce Mota Account Type Relation to Patient Date of Phone Billing Address Personal/Family Self 1955 [address] [place] [address] MEDICARE PART A & [place] [facility] MEDICARE REPLACEMENT * Guarantor: Joyce Mota Account Type Relation to Patient Date of Phone Billing Address Personal/Family Self 1955 [address] [place] [address] MEDICARE PART A & B [facility] MEDIC[facility] REPLACEMENT * Guarantor: Joyce Mota Account Type Relation to Patient Date of Phone Billing Address Personal/Family Self 1955 [address] [place] [address] * Guarantor: Joyce Mota Account Type Relation to Patient Date of Phone Billing Address Personal/Family Self 1955 [address] [place] [address] * Guarantor: Joyce Mota Account Type Relation to Patient Date of Phone Billing Address Personal/Family Self 1955 [address] [place] [address] * Guarantor: Joyce Mota Account Type Relation to Patient Date of Phone Billing Address Personal/Family Self 1955 [address] [place] [address] * Guarantor: Joyce Mota Account Type Relation to Patient Date of Phone Billing Address Personal/Family Self 1955 [address] [place] [address] * Guarantor: Joyce Mota Account Type Relation to Patient Date of Phone Billing Address Personal/Family Self 1955 [address] [place] [address] * Guarantor: Joyce Mota Account Type Relation to Patient Date of Phone Billing Address Personal/Family Self 1955 [address] [place] [address] * Guarantor: Joyce Mota Account Type Relation to Patient Date of Phone Billing Address Personal/Family Self 1955 [address] [place] [address] * Guarantor: Joyce Mota Account Type Relation to Patient Date of Phone Billing Address Personal/Family Self 1955 [address] [place] [address] Care Teams Propagator Relationship Specialty Start Date End Date Pcp, Unknown PCP - General 03/17/22 Mercedes Goel MD [address] [place] [address] Internal Medicine 03/17/22 Additional Source Comments The information contained in this document represents components of the legal health record. It is not the complete legal health record.[facility]
== END ==
LOC: HO.CARD 11:03
PROVIDERS: PCP Internal Medicine; Visit Provider Internal Medicine
DX: R07.2 Precordial pain (principal)
CPT/HCPCS: 93350; Q9957

== ENCOUNTER → 2025-08-22 11:07 | Outpatient (BNV) | payer MEDICARE, MEDICAID, SELFPAY | PROVIDERS: PCP Internal Medicine | DX: R06.02 Shortness of breath (principal); I25.5 Ischemic cardiomyopathy; I49.3 Ventricular premature depolarization; I49.1 Atrial premature depolarization | CPT/HCPCS: 93016; 93018; 93350; 93352 ==

== ENCOUNTER 2025-09-05 10:54 | Outpatient (REF) | payer MEDICARE, SELFPAY ==
--- OUTSIDE RECORDS SUMMARY | 2023-01-19 06:46 | XMS_ITS | Continuity of Care Document ---
Demographics Address [facility] [address] [place] [address] Work Phone Mobile Phone Email Address Preferred Language en Marital Status Unknown Amish Affiliation Unknown Race Unknown Ethnic Group Unknown Author Organization [facility] Address [address] [place] [address] [address] [place] [address] Phone Care Team Providers Care Link Knitting Machine Operator Name Role Phone Shay Flowers MD, FACS, RVT Unavailable Unavailable Advance Directives Directive Yes / No Effective Date File Name No Information Encounters Encounter Description Practice Location Reason(s) For Visit Diagnoses Date Provider Providers Copied on Encounter [facility], [address], [place], [id number], tel:[phone] [facility] No Information Salvador Thompson. [address] [place] [address], [address], [place]. tel:[phone] Referring Provider: Jah Isaacs, [address] [place], [address]. tel:[phone] Family History Family Member Type Diagnosis Age At Onset No Information Payers Payer name Insurance type Covered democrat ID Authoriza tion(s) [facility] [place] CI [id number] Social History Type Description Quantity Date Captured Comments Sex Female Smoking Status No Information Chief Complaint And Reason For Visit No Information Reason For Referral Reason For Referral No Information History Of Present Illness Encounter Date Complaint History Of Prese nt Illness No Information Functional Status Date Functional Assessmen t No Information Instructions Date Instruction Additional Infor mation No Information Assessments Type Assessment Date No Information Patient Care Teams Name Effective Dates (start - stop) Status Members No Information
[2025-09-05 11:06] LABS: MANUAL DIFF FLAG NO
[2025-09-05 11:37] LABS: Hematocrit 43.9 % (37.0-47.0); Hemoglobin 13.6 g/dl (12.0-16.0); Imm Gran Abs Auto 0.02 X10*3/uL (0.00-0.03); Imm Gran Pct Auto 0.3 % (0.0-0.4); Lymphocytes Absolute Auto 2.2 X10*3/uL (1.2-4.9); Mean Corpuscular HGB Conc 31.0 g/dl (31.0-35.0); Mean Corpuscular Hemoglobin 28.5 pg (27.0-33.0); Mean Corpuscular Volume 92.0 fL (80.0-98.0); NRBC Abs Auto 0.000 X10*3/uL (0.0-0.012); NRBC Pct Auto 0.0 /100WBC (0.0-0.2); Platelet Count 251 X10*3/uL (160-400); Red Blood Count 4.77 X10*6/uL (4.20-5.50); White Blood Count 6.3 X10*3/uL (4.8-10.8)
[2025-09-05 11:39] LABS: INTERNATIONAL NORM RATIO 0.9 (0.9-1.1); Prothrombin Time 11.2 SEC (11.2-13.5)
[2025-09-05 12:16] LABS: Anion Gap 11 (12-20); Blood Urea Nitrogen 16 mg/dL (9-16); Calcium 9.3 mg/dL (8.4-10.2); Carbon Dioxide 28 mmol/L (22-29); Chloride 107 mmol/L (96-108); Estimated Glomerular Filt Rate > 60; Potassium 4.8 mmol/L (3.3-5.1); Sodium 141 mmol/L (135-145)
--- OUTSIDE RECORDS SUMMARY | 2025-09-05 13:08 | XMS_ITS | Clinical Summary ---
Demographics Address [address] [place] [address] Home Phone Home Phone Preferred Language Kyrgyz Marital Status Single Baptist Affiliation Unknown Race Other Race Ethnic Group Not or Lati no Author Organization [facility] Address [address] [address] Phone Care Team Providers Care Coding Validator Name Role Phone Pcp, Unknown Primary Care [...] Insurance MEDICARE PART [place] [facility] MEDICARE REPLACEMENT MEDICARE [place] & [place] [facility] MEDICARE REPLACEMENT * Guarantor: Joyce Mota Account Type Relation to Patient Date of Phone Billing Address Personal/Family Self 1955 [facility] [address] [place] [address] MEDICARE PART A & B [facility] MEDIC[facility] REPLACEMENT * Guarantor: Joyce Mota Account Type Relation to Patient Date of Phone Billing Address Personal/Family Self 1955 [address] [place] [address] MEDICARE PART A & B [facility] MEDIC[facility] REPLAC[facility] MEDICARE PART A & B [facility] MEDIC[facility] REPLACEMENT MEDICARE PART A & B Member Subscriber Plan / Payer (Ef fective 2022-Present) Name:Joyce Mota Member ID:[id number] Relation to Subscriber:Self Name:Joyce Mota Subscriber ID:[id number] Payer ID:[id number] Group ID:Not on file Type:Medicare Address: [employer]. [address] [place] [address] [facility] MEDICARE REPLACEMENT * Guarantor: Joyce Mota Account Type Relation to Patient Date of Phone Billing Address Personal/Family Self 1955 [address] [place] [address] MEDICARE PART A & [place] [facility] [facility] MEDICARE REPLACEMENT * Guarantor: Joyce Mota Account Type Relation to Patient Date of Phone Billing Address Personal/Family Self 1955 [address] [place] [address] MEDICARE PART A & [place] [facility] [facility] MEDICARE REPLACEMENT * Guarantor: Joyce Mota Account Type Relation to Patient Date of Phone Billing Address Personal/Family Self 1955 [address] [place] [address] MEDICARE PART A & B [facility] MEDICARE REPLACEMENT * Guarantor: Joyce Mota Account Type Relation to Patient Date of Phone Billing Address Personal/Family Self 1955 [address] [place] [address] * Guarantor: Joyce Mota Account Type Relation to Patient Date of Phone Billing Address Personal/Family Self 1955 [address] [place] [address] * Guarantor: Joyce Mota Account Type Relation to Patient Date of Phone Billing Address Personal/Family Self 1955 [address] [place] [address] * Guarantor: Joyce Mota Account Type Relation to Patient Date of Phone Billing Address Personal/Family Self 1955 [address] [place] [address] * Guarantor: Joyce Mota Account Type Relation to Patient Date of Phone Billing Address Personal/Family Self 1955 [address] [place] [address] * Guarantor: Joyce Mota Account Type Relation to Patient Date of Phone Billing Address Personal/Family Self 1955 [address] [place] [address] * Guarantor: Joyce Mota Account Type Relation to Patient Date of Phone Billing Address Personal/Family Self 1955 [address] [place] [address] * Guarantor: Joyce Mota Account Type Relation to Patient Date of Phone Billing Address Personal/Family Self 1955 [address] [place] [address] * Guarantor: Joyce Mota Account Type Relation to Patient Date of Phone Billing Address Personal/Family Self 1955 [address] [place] [address] Care Teams Coding Validator Relationship Specialty Start Date End Date Pcp, Unknown PCP - General 03/17/22 Mercedes Goel MD [address] [place] [phone] Internal Medicine 03/17/22 Additional Source Comments The information contained in this document represents components of the legal health record. It is not the complete legal health record.[facility]
== END 2025-09-05 10:55 | disposition home or self-care (01) ==
LOC: HO.LAB 10:54
DX: R07.2 Precordial pain (principal)
CPT/HCPCS: 36415; 80048; 85025; 85610

== ENCOUNTER → 2025-09-09 23:59 | Outpatient (BNV) | payer MEDICARE, MEDICAID, SELFPAY | PROVIDERS: Visit Provider Internal Medicine Cardiovascular Disease | DX: I25.118 Atherosclerotic heart disease of native coronary artery with other forms of angina pectoris (principal) | CPT/HCPCS: 93458; 99152 ==

== ENCOUNTER 2025-09-18 10:12 | Outpatient (AMB) | payer MEDICARE, MEDICAID, SELFPAY ==
[2025-09-18 10:20] VITALS: BP 138/68; PULSE 62
--- NOTE | 2025-09-18 10:20 | MHC.OFFVIS ---
Vital Signs 09/18/25 10:20 Height 5 ft 1 in Weight 158 lb 11.725 oz BMI 30.0 BP 138/68 Blood Pressure Location Lt brachial Position Sitting Pulse 62 Pulse Source Pulse Oximeter Intake Visit Reasons: dr medina pt stress echo Allergies acetaminophen (From Percocet) Allergy (Verified 07/08/25 13:23) vomitting Antihistamines - Alkylamine Allergy (Verified 07/08/25 13:23) itching morphine Allergy (Verified 07/08/25 13:23) bp goes up and feels pins and needles oxycodone (From Percocet) Allergy (Verified 07/08/25 13:23) vomitting Medication List - Last Reconciled 09/18/25 by RYLIE Ruano albuterol sulfate 90 mcg/actuation 2 puffs PO Q4H PRN aspirin 81 mg PO DAILY atorvastatin (Lipitor) 20 mg PO DAILY fluticasone propionate 50 mcg/actuation 2 sprays intranasal DAILY 30 days yjxplvjcxgq-inlbwoqmo-szqdzgnm 200-62.5-25 mcg (Trelegy Ellipta) 1 ea PO DAILY metoprolol succinate ER 25 mg PO DAILY nebulizers As directed nitroglycerin 0.4 mg sublingual Q5M PRN HPI HPI dr medina pt stress echo: Details: The patient is a 70 year old individual presenting for follow-up of jaw discomfort with exertional activity. The patient underwent a stress echocardiogram on 08/22/2025, which showed abnormal images suggesting septal ischemia in the LAD territory. This prompted a cardiac catheterization on 09/09/2025 that revealed mild ectasia of the proximal LAD, but otherwise normal vessels. The patient's last echocardiogram on 05/24/2022 showed an ejection fraction of 57% with no valve abnormalities. The patient's past medical history includes asthma, heart palpitations, and brief episodes of supraventricular tachycardia (SVT). Current medications include treatment for asthma, aspirin, atorvastatin, and metoprolol. Today she reports no recurrent episodes of jaw discomfort. She does get brief pinching pains in her left chest region which occur randomly. She has no shortness of breath, PND, orthopnea or edema. She is not noticing any recent heart palpitations. She reports good activity tolerance. She does not want to take the cholesterol medication. We agreed to have her put it on hold and check her cholesterol level in the near future. [facility] Medical History Chronic bronchitis Asthma Allergies Surgical History No pertinent past surgical history Family History Father No problems noted. Mother No problems noted. Social History Alcohol intake: never Patient Tobacco Use Status: Never used Tobacco Current occupational status: disabled Current occupation: rt hand Review of Systems Const All systems reviewed & are unremarkable except as noted in HPI and below Denies weakness ENT Denies dizziness Card Denies chest pain, Denies chest pain with activity, Denies syncope, Denies rapid heart rate, Denies pedal edema, Denies edema, Denies leg edema, Denies lightheadedness, Denies palpitations, Denies dyspnea, Denies dyspnea on exertion and Denies orthopnea Resp Denies cough, Denies dyspnea and Denies dyspnea on exertion GI Denies hematochezia and Denies change in stool character Musc Denies abnormal gait, Denies muscle cramps, Denies muscle weakness, Denies numbness, Denies radiating pain into limb and Denies tingling Neuro Denies abnormal gait, Denies dizziness, Denies syncope, Denies numbness, Denies tingling and Denies weakness Endo Denies palpitations Physical Exam Vital Signs: Last Vital Signs Pulse 62 09/18/25 10:20 BP 138/68 09/18/25 10:20 BMI result Body Mass Index 30.0 Const General: cooperative, healthy appearing, comfortable and no acute distress Orientation/consciousness: patient oriented x3 Neck Neck: Yes normal visual inspection and Yes no JVD Resp Effort & Inspection: normal respiratory effort Auscultation: clear to auscultation bilaterally, no crackles, no rales, no rhonchi and no wheezes Cardio Rate: regular rate Rhythm: regular rhythm Heart sounds: S1 normal heart sound present, S2 normal heart sound present, no gallops, no murmurs and no rubs Neuro General: patient oriented x3 Extrem Other: Right radial pulse easily palpable, right hand assessment normal General: Yes normal to inspection, No no pedal edema and No calf tenderness Psych Appearance: grossly normal Mental Status: mental status grossly normal Speech and movement: Normal speech and movement present Assessment & Plan Assessment & Plan (1) Precordial chest pain: Code(s): R07.2 - Precordial pain Category: Medical Plan: Episode of jaw discomfort when doing had trimming. She underwent cardiac evaluation resulting in cardiac catheterization showing only mild ectasia of the proximal LAD, otherwise vessels are normal. All test results reviewed with her. She has had no recurrent jaw discomfort. She does get atypical pinching pains which I informed her were noncardiac. Reviewed risk factor modification. She does not want to take the atorvastatin. We agreed to check fasting lipids off the medication in a few weeks. Continue aspirin and metoprolol. (2) Abnormal stress echo: Code(s): R94.39 - Abnormal result of other cardiovascular function study Category: Medical Plan: Stress echo findings suggestive of septal ischemia, lad territory. She did have cardiac catheterization showing no significant CAD. (3) Atrial arrhythmia: Code(s): I49.8 - Other specified cardiac arrhythmias Category: Medical Plan: History of PACs, brief atrial tach/ SVT. She denies any recent heart palpitations. Continue metoprolol. (4) S/P cardiac cath: Comment: 09/09/2025 lad normal mild ectasia proximal vessel, left main, left circumflex and RCA all normal Code(s): Z98.890 - Other specified postprocedural states Category: Surgical Plan: Right radial catheterization site well healed Plan I reviewed with the patient that the presenting symptom of jaw discomfort with exertion led to a workup including a stress echocardiogram, which was abnormal and suggested septal ischemia. I further explained that the subsequent cardiac catheterization showed that the coronary arteries were normal, with the exception of mild ectasia in the proximal LAD. We discussed that the management plan would be aggressive risk factor modification. Orders: Orders Lipid Panel Today R94.39 - Abnormal result of other cardiovascular function study Medications: On Hold atorvastatin (Lipitor) Hold Comment: Patient request 20 mg PO DAILY 90 tabs 3RF Patient Instructions: - Your care plan will focus on aggressive modification of your risk factors for heart disease. - Please continue to take your current medications as prescribed, which include aspirin and metoprolol. - Put the Atorvastatin on hold and check fasting lipids in a few weeks. - Cardiology follow up in 1 year, sooner if needed Patient was informed and verbally consented to the use of an ambient scribe for clinic note documentation during this visit. Visit time spent on chart review, interview, assessment, orders, documentation. Coding Level of Care Code Est Pt Level 4 (92855) Complex EM visit Add On G2211 Diagnoses Precordial chest pain R07.2 Abnormal stress echo R94.39 Atrial arrhythmia I49.8 S/P cardiac cath Z98.890 Time Spent (min) 30
--- OUTSIDE RECORDS SUMMARY | 2025-09-18 15:01 | XMS_ITS | Clinical Summary ---
Demographics Address [address] [place] [address] Home Phone Home Phone Preferred Language Persian Marital Status Single Protestant Affiliation Unknown Race Other Race Ethnic Group Not or Lati no Author Organization [facility] Address [address] [address] Phone Care Team Providers Care Bank Examiner Name Role Phone Pcp, Unknown Primary Care [...] on patient's age to complete this topic IPV VACCINES Aged Out No longer eligi ble based on patient's age to complete this topic MENINGOCOCCAL VACCINES (ACWY) Aged Out No longer eligible based on patient's age to complete this topic MENINGOCOCCAL VACCINES (B) Aged Out N o longer eligible based on patient's age to complete this topic Medical Devices Not on file Insurance * Guarantor: Joyce Mota Account Type Relation to Patient Date of Phone Billing Address Personal/Family Self 1955 [address] [place] [address] MEDICARE PART A & B [facility] MEDICARE REPLACEMENT * Guarantor: Joyce Mota Account Type Relation to Patient Date of Phone Billing Address Personal/Family Self 1955 [facility] [address] [place] [address] MEDICARE PART A & B [facility] MEDICARE REPLACEMENT * Guarantor: Joyce Mota Account Type Relation to Patient Date of Phone Billing Address Personal/Family Self 1955 [address] [place] [address] MEDICARE PART A & B [facility] MEDIC[facility] REPLACEMENT * Guarantor: Joyce Mota Account Type Relation to Patient Date of Phone Billing Address Personal/Family Self 1955 [facility] [address] [place] [address] MEDICARE PART A & B [facility] MEDICARE REPLACEMENT [place] [id number] * Guarantor: Joyce Mota Account Type Relation to Patient Date of Phone Billing Address Personal/Family Self 1955 [address] [place] [address] MEDICARE PART A & B [facility] MEDICARE REPLACEMENT [place] [id number] MEDICARE PART A & B [facility] MEDICARE REPLACEMENT [address] [place], [place] MEDICARE PART A & B [facility] MEDICARE REPLACEMENT * Guarantor: Joyce Mota Account Type Relation to Patient Date of Phone Billing Address Personal/Family Self 1955 [facility] [address] [place] [address] MEDICARE PART A & B [facility] MEDICARE REPLACEMENT * Guarantor: Joyce Mota Account Type Relation to Patient Date of Phone Billing Address Personal/Family Self 1955 [facility] [address] [place] [address] MEDICARE PART A & B [facility] MEDICARE REPLACEMENT [place] [id number] * Guarantor: Joyce Mota Account Type Relation to Patient Date of Phone Billing Address Personal/Family Self 1955 [address] [place] [address] * Guarantor: Joyce Mota Account Type Relation to Patient Date of Phone Billing Address Personal/Family Self 1955 [address] [place] [address] * Guarantor: Joyce Mota Account Type Relation to Patient Date of Phone Billing Address Personal/Family Self 1955 [address] [place] [address] * Guarantor: Jocye Mota Account Type Relation to Patient Date of Phone Billing Address Personal/Family Self 1955 [address] [place] [address] * Guarantor: Joyce Mota Account Type Relation to Patient Date of Phone Billing Address Personal/Family Self 1955 [address] [place] [address] * Guarantor: Joyce Mota Account Type Relation to Patient Date of Phone Billing Address Personal/Family Self 1955 [address] [place] [address] * Guarantor: Joyce Mota Account Type Relation to Patient Date of Phone Billing Address Personal/Family Self 1955 [address] [place] [address] * Guarantor: Joyce Mota Account Type Relation to Patient Date of Phone Billing Address Personal/Family Self 1955 [address] [place] [address] * Guarantor: Joyce Mota Account Type Relation to Patient Date of Phone Billing Address Personal/Family Self 1955 [address] [place] [address] Care Teams Bank Examiner Relationship Specialty Start Date End Date Pcp, Unknown PCP - General 03/17/22 Mercedes Goel MD [address] [place] [id number] Internal Medicine 03/17/22 Additional Source Comments The information contained in this document represents components of the legal health record. It is not the complete legal health record.[facility]
== END 2025-09-18 10:43 | disposition home or self-care (01) ==
LOC: HO.HCS 10:13
PROVIDERS: PCP Internal Medicine; Visit Provider Nurse Practitioner Family
DX: R07.2 Precordial pain (principal); R94.39 Abnormal result of other cardiovascular function study; I49.8 Other specified cardiac arrhythmias; Z98.890 Other specified postprocedural states
CPT/HCPCS: 99214; G2211

== ENCOUNTER → 2025-09-18 10:12 | Outpatient (BNVA) | payer MEDICARE, MEDICAID, SELFPAY | PROVIDERS: PCP Internal Medicine; Visit Provider Nurse Practitioner Family | DX: R07.2 Precordial pain (principal); R94.39 Abnormal result of other cardiovascular function study; I49.8 Other specified cardiac arrhythmias; Z98.890 Other specified postprocedural states | CPT/HCPCS: 99212 ==

== ENCOUNTER 2025-10-17 10:40 | Outpatient (AMB) | payer MEDICARE, MEDICAID, SELFPAY ==
[2025-10-17 10:41] VITALS: BP 116/58; PULSE 80; O2SAT 96; BMI 30.6
--- NOTE | 2025-10-17 10:41 | A.OFFVIS_ITS ---
Vital Signs 10/17/25 10:41 Height 5 ft 1 in Weight 162 lb 0.636 oz BMI 30.6 BP 116/58 L Blood Pressure Location Lt brachial Position Sitting Pulse 80 Pulse Source Pulse Oximeter Pulse Oximetry (%) 96 Oxygen Delivery Method Room Air Intake Visit Reasons: Asthma Director Social Required: No Professor Of Languages: Professor Of Languages offered & declined Accompanied by: Self / Same As Patient Allergies acetaminophen (From Percocet) Allergy (Verified 10/17/25 10:46) vomitting Antihistamines - Alkylamine Allergy (Verified 10/17/25 10:46) itching morphine Allergy (Verified 10/17/25 10:46) bp goes up and feels pins and needles oxycodone (From Percocet) Allergy (Verified 10/17/25 10:46) vomitting HPI Comments Details: The patient is a 70 year woman with known history of using her rescue inhaler multiple times a day. The patient is stop her maintenance inhalers because they just were not working for her. The patient does not required any prednisone however. She also states she has significant allergies. She states that initially her asthma started after living in a moldy apartment in the afterwards she when she moved out she still had her symptoms. She was being evaluated previously by Pulmonary at [facility]. But then her provide her left and she is been lost to follow-up. She did have her pulmonary function studies done recently at [facility] we did review them. The patient appears to have a partially reversible obstruction concerning with severe asthma uncontrolled and or asthma COPD overlap syndrome. Explained to him the importance of using respiratory therapy to try to maximize her bronchodilation effect that she has basilar PFTs. The patient also basilar significant symptoms may be a good candidate for biologic therapy. Will go ahead and we test her allergies and also blood work at this time. The patient also has significant chronic congestion. We did try to get a sputum sample we were able to do so. Therefore, we did provide her a sputum cup and she will try to provide 1 at home. Likely that the chronic bronchitis is mainly a asthmatic bronchitis picture due to her significant allergies. As far as exposures she does have a dog and also has an exotic birds in the house. She does clean the cage outside and tries to minimize exposure to the father's. Will go ahead and tested hypersensitivity panel to see if there is a component of hypersensitivity pneumonitis. at this time will go ahead and maximize her respiratory therapy by placing her on Trelegy and she can continue her rescue inhaler as needed. Will follow-up after the blood work and also have her get an x-ray and sputum culture. 11/10/2023 the patient is here for pulmonary follow-up visit. She has doing a little better. The Trelegy has been partially helpful. Although she still continues have chest tightness cough chest congestion and wheezing. [id number] severity. She does use her rescue inhaler typically in a daily basis. We did review her blood work. Her eosinophils are within normal limits and her IgE just slightly elevated. Allergy testing in a very significant. Therefore does not appear to have a significant allergic component. Therefore, based on the patient's symptoms of chronic bronchitis will go ahead and start her on azithromycin 3 times a week. She can not get an EKG when she starts the medicine to make sure that it QT continues to be stable. If the patient continues to be symptomatic after that therapy and if she requires additional prednisone then test prior, biologic therapy, will be the next often. The patient also may be a good candidate for Daliresp. Will reassess when she returns in 3-4 months. 12/03/2024 the patient is here for a pulmonary follow-up visit the patient overall is doing okay. Although recently she was exposed to mold in her condominium in his resulting worsening respiratory symptoms wheezing and tightness. She has been on the Trelegy and also on Singulair. Unfortunately she can not tolerate Zyrtec his it can cause palpitations. Therefore I will send her Astelin nasal spray to help her with the significant nasal congestion and asthma symptoms. The patient would also be a candidate for biologics for her significant asthma but she is not interested at this time. Therefore will maximize her chronic rhinitis therapy she will continue with her inhalers and she also has a nebulizer available for worsening symptoms. She is going to minimize the exposure to the mold she is hoping to move out of her condominium. 07/08/2025 the patient is here for pulmonary follow-up visit. Recently she had a fall she hurt her head and also her leg. She went to the ER. Now she is feeling a little bit better from that standpoint although still has a headache. The patient is still having hard time with the breathing. She continues on the Trelegy and also continues on her respiratory medications. She uses her nebulizer regularly. She still has significant chest congestion. The patient is willing to use biologic therapies if indicated. Will go ahead and have her get blood work. In the meantime will start her on azithromycin 3 times a week. She will continue with respiratory medicine. If the patient worsens she may need some prednisone I will send some to the pharmacy. 10/17/2025 the patient is here for pulmonary follow-up visit. The patient overall has been doing okay except for her nasal congestion. She has been on the Trelegy does not to be helping her asthma like symptoms. The patient does complaint of nasal congestion. She can not tolerate the fluticasone because it caused her bleeding. She has tried the Astelin nasal spray without any clear benefit. The patient continues to be very stuffy and uncomfortable and has a hard time at nighttime. She does use Vicks with some partial relief. She also uses home with home remedies for her cough and does help. Will go ahead and refer her to ENT at this time. In the meantime she could try the ipratropium nasal spray and Afrin she can use only for 5 days which I will send. The patien t gets start Singulair at night and Claritin during the day to see if this provides some relief as well. Hopefully ENT can take a look and see if there is any other therapies. In addition to that will have her get sinus x-rays to just make sure there on any air-fluid levels to need antibiotics for. Otherwise the patient is doing well she will continue with the other respiratory therapy and will follow-up in 4-6 months. [facility] Medical History (Updated 10/17/25 @ 11:03 by Josh Silvestre MD) Chronic allergic rhinitis Chronic bronchitis Asthma Allergies Surgical History (Updated 09/18/25 @ 11:22 by RYLIE Ruano) No pertinent past surgical history Family History Father No problems noted. Mother No problems noted. Social History Alcohol intake: never Patient Tobacco Use Status: Never used Tobacco Current occupational status: disabled Current occupation: rt hand Review of Systems Const Denies fever(s) Eyes Denies itchy eyes ENT Reports nasal congestion and Reports nasal discharge Card Denies chest pain Resp Reports chest congestion, Reports cough and Reports wheezing GI Reports no additional complaints Musc Reports no additional complaints Skin/Breast Denies rash Vini/Lymph Denies lymphadenopathy Aller/Immun Denies itchy eyes and Reports wheezing Physical Exam Vital Signs: Last Vital Signs Pulse 80 10/17/25 10:41 BP 116/58 L 10/17/25 10:41 Pulse Ox 96 10/17/25 10:41 Oxygen Delivery Method Room Air 10/17/25 10:41 BMI result Body Mass Index 30.6 Const General: comfortable HEENT Head: Yes normocephalic Neck Neck: Yes supple Chest Chest palpation & inspection: normal inspection of the chest Resp Effort & Inspection: normal respiratory effort and prolonged expiratory phase Auscultation: no rhonchi, no wheezes and diminished lung sounds Cardio Rate: regular rate Rhythm: regular rhythm Heart sounds: S1 normal heart sound present and S2 normal heart sound present GI Palpation (GI): Soft to palpation Extrem General: Yes no clubbing, cyanosis or edema Assessment & Plan Assessment & Plan (1) Asthma: Code(s): J45.909 - Unspecified asthma, uncomplicated Category: Medical Qualifiers: Asthma complication type: uncomplicated Asthma persistence: persistent Asthma severity: severe Qualified Code(s): J45.50 - Severe persistent asthma, uncomplicated (2) Chronic bronchitis: Code(s): J42 - Unspecified chronic bronchitis Category: Medical Qualifiers: Chronic bronchitis type: mucopurulent Qualified Code(s): J41.1 - Mucopurulent chronic bronchitis (3) Allergies: Code(s): T78.40XA - Allergy, unspecified, initial encounter Category: Medical Qualifiers: Encounter type: initial encounter Qualified Code(s): T78.40XA - Allergy, unspecified, initial encounter (4) Chronic allergic rhinitis: Code(s): J30.9 - Allergic rhinitis, unspecified Category: Medical Plan continue Trelegy 200 stopped Astelin nasal spray stopped Fluticasone nasal sprsy due to epistaxis start Claritin start Singulair Afrin x 5 days Trial Ipratropium nasal spray nasal risning (lanny med sinus rinse) sinus xrays ENT referral CXR stopped azithromycin MWF Prednisone if no better GAMAL as needed F/U 3-4 months Orders: Orders XR sinus min 3V 10/17/25 J30.9 - Allergic rhinitis, unspecified Referrals Ear/Nose/Throat Referral J30.9 - Allergic rhinitis, unspecified Medications: New loratadine (Claritin) 10 mg PO DAILY 30 tabs 11RF 30 days J30.2 - Other seasonal allergic rhinitis, J45.909 - Unspecified asthma, uncomplicated montelukast (Singulair) 10 mg PO BEDTIME 30 tabs 11RF 30 days J45.909 - Unspecified asthma, uncomplicated oxymetazoline 0.05% (Afrin (oxymetazoline)) 2 sprays intranasal Q12H PRN 22 mL 0RF nasal congestion 5 days ipratropium bromide administer into each nostril 2 sprays intranasal TID PRN 15 mL 6RF allergy symptoms Coding Level of Care Code Est Pt Level 4 (43224) Diagnoses Severe persistent asthma without complication J45.50 Asthma complication type: uncomplicated Asthma persistence: persistent Asthma severity: severe Mucopurulent chronic bronchitis J41.1 Chronic bronchitis type: mucopurulent Allergy, initial encounter T78.40XA Encounter type: initial encounter Chronic allergic rhinitis J30.9 Time Spent (min) 17
--- OUTSIDE RECORDS SUMMARY | 2025-10-17 12:23 | XMS_ITS | Clinical Summary ---
Demographics Address [address] [place] [address] Home Phone Home Phone Preferred Language Thai Marital Status Single Cheondoism Affiliation Unknown Race Other Race Ethnic Group Not or Lati no Author Organization [facility] Address [address] [address] Phone Care Team Providers Care Entry Level Java Developer Name Role Phone Pcp, Unknown Primary Care [...] Insurance MEDICARE PART A & B [facility] MEDICARE REPLACEMENT MEDICARE PART A & B [facility] MEDICARE REPLACEMENT * Guarantor: Joyce Mota Account Type Relation to Patient Date of Phone Billing Address Personal/Family Self 1955 [facility] [address] [place] [address] MEDICARE PART A & B [facility] MEDIC[facility] REPLACEMENT * Guarantor: Joyce Mota Account Type Relation to Patient Date of Phone Billing Address Personal/Family Self 1955 [address] [place] [address] MEDICARE PART A & B [facility] MEDICARE REPLACEMENT MEDICARE PART A & B [facility] MEDICARE REPLACEMENT MEDICARE PART A & B [facility] MEDICARE REPLACEMENT * Guarantor: Joyce Mota Account Type Relation to Patient Date of Phone Billing Address Personal/Family Self 1955 [address] [place] [address] MEDICARE PART A & B [facility] MEDICARE REPLACEMENT * Guarantor: Joyce Mota Account Type Relation to Patient Date of Phone Billing Address Personal/Family Self 1955 [address] [place] [address] MEDICARE PART A & B [facility] MEDICARE REPLACEMENT * Guarantor: Joyce Mota Account Type Relation to Patient Date of Phone Billing Address Personal/Family Self 1955 [address] [place] [address] MEDICARE PART A & B [facility] MEDICARE REPLACEMENT * Guarantor: Joyce Mota Account Type Relation to Patient Date of Phone Billing Address Personal/Family Self 1955 [address] [place] [address] * Guarantor: Joyce Mota Account Type Relation to Patient Date of Phone Billing Address Personal/Family Self 1955 [address] [place] [address] * Guarantor: Joyce Mota Account Type Relation to Patient Date of Phone Billing Address Personal/Family Self 1955 [address] [place] [address] * Guarantor: Joyce Mota Account Type Relation to Patient Date of Phone Billing Address Personal/Family Self 1955 [address] [place] [address] * Guarantor: Joyce Mota Account Type Relation to Patient Date of Phone Billing Address Personal/Family Self 1955 [address] [place] [address] * Guarantor: Joyce Mota Account Type Relation to Patient Date of Phone Billing Address Personal/Family Self 1955 [address] [place] [address] * Guarantor: Joyce Mota Account Type Relation to Patient Date of Phone Billing Address Personal/Family Self 1955 [address] [place] [address] * Guarantor: Joyce Mota Account Type Relation to Patient Date of Phone Billing Address Personal/Family Self 1955 [address] [place] [address] * Guarantor: Joyce Mota Account Type Relation to Patient Date of Phone Billing Address Personal/Family Self 1955 [address] [place] [address] Care Teams Entry Level Java Developer Relationship Specialty Start Date End Date Pcp, Unknown PCP - General 03/17/22 Mercedes Goel MD [address] [place] [id number] Internal Medicine 03/17/22 Additional Source Comments The information contained in this document represents components of the legal health record. It is not the complete legal health record.[facility]
== END 2025-10-17 11:12 | disposition home or self-care (01) ==
LOC: HO.HPS 10:41
PROVIDERS: PCP Internal Medicine; Visit Provider Hospitalist
DX: J45.50 Severe persistent asthma, uncomplicated (principal); J41.1 Mucopurulent chronic bronchitis; T78.40XA Allergy, unspecified, initial encounter; J30.9 Allergic rhinitis, unspecified
CPT/HCPCS: 99214

== ENCOUNTER → 2025-10-17 10:40 | Outpatient (BNVA) | payer MEDICARE, MEDICAID, SELFPAY | PROVIDERS: PCP Internal Medicine; Visit Provider Hospitalist | DX: J45.50 Severe persistent asthma, uncomplicated (principal); J41.1 Mucopurulent chronic bronchitis; J30.9 Allergic rhinitis, unspecified; J82.83 Eosinophilic asthma; T78.40XA Allergy, unspecified, initial encounter | CPT/HCPCS: 99212 ==